=== PATIENT | female | born 1980 | race Caucasian/White ===

== ENCOUNTER 2025-11-10 03:10 | Emergency (ER) | payer MEDICAID, SELFPAY ==
--- NOTE | ~2025-11-10 | CT_ITS ---
CLINICAL HISTORY: flank pain CT abdomen and pelvis without contrast Comparison: None provided Findings: Limited exam due to streak artifacts and motion. Mild bibasilar dependent lung atelectasis. Small calcified right hilar nodes. Small calcified splenic granuloma. Mild splenomegaly. Gallbladder not seen on this limited study and may be surgically absent. Pancreas liver bile ducts and adrenals are unremarkable. Questionable 1 mm nonobstructive right renal stone. No hydronephrosis. No bowel obstruction, pneumoperitoneum, or pneumatosis. Nonspecific/indeterminate enlarged aortocaval node measuring up to 13 mm in short axis (series 3, image 37), may be reactive or neoplastic in nature. Correlate clinically. [id number] stool and gas in the colon. Atherosclerotic calcifications. Query hysterectomy. No appendicitis. Empty urinary bladder. The bones are intact. IMPRESSION: Limited exam due to streak artifacts and motion. No hydronephrosis. Nonspecific/indeterminate enlarged aortocaval node measuring up to 13 mm in short axis (series 3, image 37), may be reactive or neoplastic in nature. Correlate clinically. This document has been electronically signed by: Beverly Laird MD on 11/10/2025 05:36:27
[2025-11-10 03:15] VITALS: BP 239/123; PULSE 75; RESP 20; TEMP 36.6; O2SAT 100; BMI 18.8
[2025-11-10 04:09] LABS: Appearance Urine Clear; Glucose Urine UA >=1000 mg/dL (Negative); PH 6.5 (5.0-9.0); Specific Gravity - Urine 1.025 (1.005-1.025); UMIC TRIGGER UACC YES
[2025-11-10 04:15] LABS: Hematocrit 47.6 % (37.0-47.0); Hemoglobin 15.4 g/dl (12.0-16.0); Imm Gran Abs Auto 0.04 X10*3/uL (0.00-0.03); Imm Gran Pct Auto 0.4 % (0.0-0.4); Lymphocytes Absolute Auto 1.4 X10*3/uL (1.2-4.9); Mean Corpuscular HGB Conc 32.4 g/dl (31.0-35.0); Mean Corpuscular Hemoglobin 26.3 pg (27.0-33.0); Mean Corpuscular Volume 81.2 fL (80.0-98.0); NRBC Abs Auto 0.000 X10*3/uL (0.0-0.012); NRBC Pct Auto 0.0 /100WBC (0.0-0.2); Platelet Count 244 X10*3/uL (160-400); Red Blood Count 5.86 X10*6/uL (4.20-5.50); White Blood Count 10.6 X10*3/uL (4.8-10.8)
[2025-11-10 04:16] VITALS: BP 207/107; PULSE 67; RESP 13
[2025-11-10 04:16] LABS: MANUAL DIFF FLAG NO
--- NOTE | 2025-11-10 04:20 | ED.GENADULT ---
HPI - General Adult General Chief complaint: Back Pain/Injury Stated complaint: back pain Time Seen by Provider: 11/10/25 03:45 Source: patient Limitations: no limitations History of Present Illness ED Provider: Renetta Fernandes PA-C HPI narrative: 45-year-old female with a self-reported history of chronic back pain, IV drug abuse, HTN, presents with mid back pain x3 days. Pain spans from mid to low back, does not radiate into the lower extremities. Unable to describe the nature of her discomfort. Denies paresthesia, weakness of lower extremities, urinary retention or bowel incontinence. Patient states she has been having decreased urine output, dysuria and nausea vomiting. Denies fever or history of kidney stones. Patient also denies mechanism of injury that could have triggered her back pain. Related Data Previous Rx's ?Medication ?Instructions ?Recorded clonidine HCl 0.1 mg tablet 0.1 mg PO BID 30 days #60 tabs 11/12/25 lisinopril 40 mg tablet 40 mg PO DAILY 30 days #30 tabs 11/12/25 Allergies Allergy/AdvReac Type Severity Reaction Status Date / Time morphine (MORPHINE) Allergy Intermediate HIVES Verified 11/11/25 19:15 Penicillins (PENICILLINS) Allergy Intermediate HIVES Verified 11/11/25 19:15 Sulfa (Sulfonamide Allergy Intermediate HIVES Verified 11/11/25 19:15 Antibiotics) (SULFA(SULFONAMIDE ANTIBIOTICS)) Review of Systems Review of Systems: Yes all other systems are reviewed and are negative Constitutional: Constitutional: Denies fatigue and Denies fever(s) Cardiovascular: Cardiovascular: Denies chest pain and Denies dyspnea Respiratory: Respiratory: Denies cough and Denies dyspnea Gastrointestinal: Gastrointestinal: Denies abdominal pain, Denies constipation, Denies diarrhea, Reports nausea and Reports vomiting Genitourinary: Genitourinary: Reports dysuria and Denies flank pain Musculoskeletal: Musculoskeletal: Reports back pain, Denies muscle weakness, Denies numbness, Denies radiating pain into limb, Denies stiffness and Denies tingling Neurologic: Denies numbness and Denies tingling Endocrine: Endocrine: Denies fatigue [facility] Past Medical History Attestation statement: The following information was validated with the patient. Medical History (Updated 11/12/25 @ 02:13 by Danielle Ponce DO) Polysubstance abuse Social History Social History Household Members: Family Housing: House Do you presently have visiting nurse or other home services: No Patient Tobacco Use Status: Current everyday Tobacco user Tobacco use type: Cigarette Cigarettes Per Day: 3 e-Cigarette/Vaping Use: Never Used Physical Exam ED Vital Signs: Vital Signs - 24 hr 11/10/25 03:15 11/10/25 04:16 11/10/25 09:19 Temperature 97.8 F Pulse Rate 75 67 65 Respiratory Rate 20 13 18 Blood Pressure 239/123 H 207/107 H 208/105 H Pulse Oximetry 100 97 Oxygen Delivery Method Room Air Room Air BMI result Body Mass Index 18.8 Const Other: Awake, appears older than stated age Orientation/consciousness: patient oriented x3 Resp Effort & Inspection: normal respiratory effort Cardio Other: Normal peripheral perfusion Back/Spine/Pelvis Other: Bilateral CVA tenderness Skin Other: Warm dry no rash Neuro General: patient oriented x3, gait normal, no focal motor deficits and CN's II-XI intact bilaterally Extrem Other: Strength 5/5 bilateral lower extremity Psych Other: Hostile belligerent Course Reevaluation(s) Reevaluation #1: After the initial round of medication, the patient is still begins to vomit, giving some Benadryl. The patient's behaviors have been very concerning for medication seeking behavior. She states she last used illicit substances 12 months ago, her drug screen is positive for fentanyl cocaine and marijuana. Her mother who is at bedside, is extremely emotional, she states she brought her here for help with detox. I will place a consult with the recovery team. Right now, the patient is more calm, sleeping, she had 1 episode of vomiting. I will treat with opiate to help with her opiate withdrawal, when she wakes again. Time: 05:08 Reevaluation #2: Time: 05:40 Date: 11/10/25 Provider: HILARIA Middleton Patient in physician observation for psychiatric evaluation.? No acute events reported overnight. No current complaints. VS stable.? Patient is in bed search status/pending CARE team evaluation. Will continue to monitor. Reevaluation #3: DR. Strickland's progress note: 11/10/2025: 09:30: Patient in the ED is calm, no SI, no HI, no hallucination no complaints, found to have high blood pressure 208/105, no headache, no blurry vision, no CP, no SOB, no abdominal pain currently patient used to take blood pressure medication which she does not take now because she lost her medical insurance and PCP coverage. Patient in the process of applying for health insurance and finding PCP, patient and her partner are requesting to leave now do not want to wait to monitor blood pressure after taking amlodipine. Time: 09:29 Medications Administered Discontinued Medications Generic Name Dose Route Start Last Admin Trade Name Umu PRN Reason Stop Dose Admin Amlodipine Besylate 5 mg 11/10/25 09:23 11/10/25 09:33 Amlodipine Besylate 5 Mg Tablet PO 11/10/25 09:24 5 mg ONCE ONE Administration Protocol Diphenhydramine HCl 25 mg 11/10/25 04:37 11/10/25 04:51 Diphenhydramine Hcl 50 Mg/Ml Vial IVPUSH 11/10/25 04:38 25 mg ONCE ONE Administration Droperidol 2.5 mg 11/10/25 04:13 11/10/25 04:24 Droperidol 5 Mg/2 Ml Vial IVPUSH 11/10/25 04:14 2.5 mg ONCE ONE Administration Hydromorphone HCl 0.5 mg 11/10/25 05:21 11/10/25 05:26 Hydromorphone Hcl 0.5 Mg/0.5 Ml Syringe IVPUSH 11/10/25 05:22 0.5 mg ONCE ONE Administration Protocol Lactated Ringer's 1,000 mls @ 999 mls/hr 11/10/25 05:00 11/10/25 07:27 Lr IV 11/10/25 06:00 Infused .Q1H1M CYNTHIA Infusion Ketorolac Tromethamine 15 mg 11/10/25 04:13 11/10/25 04:23 Ketorolac Tromethamine 15 Mg/Ml Vial IVPUSH 11/10/25 04:14 15 mg ONCE ONE Administration Midazolam HCl 2 mg 11/10/25 04:13 11/10/25 04:26 Midazolam Hcl 2 Mg/2 Ml Vial IVPUSH 11/10/25 04:14 2 mg ONCE ONE Administration Procedures Ultrasound ED POC Ultrasound: Ultrasound-guided IV for peripheral access: RN unable to obtain 20 gauge 1-3/4 inch IV placed in left upper extremity. Adequate blood return, flushes well and secured with Tegaderm, Performed by Renetta Fernandes PA-C on November 10, 2025 Medical Decision Making Medical Decision Making MDM Narrative: 45-year-old female with a self-reported history of chronic back pain, IV drug abuse, HTN, presents with mid back pain x3 days. Pain spans from mid to low back, does not radiate into the lower extremities. Unable to describe the nature of her discomfort. Denies paresthesia, weakness of lower extremities, urinary retention or bowel incontinence. Patient states she has been having decreased urine output, dysuria and nausea vomiting. Denies fever or history of kidney stones. Patient also denies mechanism of injury that could have triggered her back pain. Problem: Poorly controlled blood pressure, IV drug abuse, chronic pain History: Per patient and her mother I have considered the following differential diagnoses: Medication seeking behavior, opiate withdrawal, alcohol withdrawal, renal colic, pyelonephritis, viral syndrome, cauda equina, lumbar radiculopathy, Plan: The patient is most certainly exhibiting medication seeking behavior. With her constellation of symptoms and nature of the exam, I will rule out pyelo versus renal colic. Obtaining screening labs, urinalysis in his dry CT scan. I am medicating with droperidol Versed and Toradol. The patient is hypertensive and tachy at times, I asked numerous times whether the patient has an alcohol abuse history, the mother, who is a reliable historian, denies. She states that her daughter does have a substance abuse history. She also states she is concerned, and that she brought her here for help with detox. The patient's presentation could also be secondary to opiate withdrawal. Adding on a drug screen and ethanol. We will place consult with the recovery team. Influenza has been circulating ramp within the ED, adding on a viral panel. I have independently reviewed the following tests: Labs: No overall leukocytosis, left shift noted, although the patient has hemoconcentrated, drug screen positive for fentanyl, cocaine and marijuana, urine not infected, passing sugar, trace hematuria, chemistry pending, it needs to be recollected, viral panel negative, No electrolyte abnormality, sugar 169, not , ethanol less than 10.... She may be a new diabetic CT abdomen and pelvis:IMPRESSION: Limited exam due to streak artifacts and motion. No hydronephrosis. Nonspecific/indeterminate enlarged aortocaval node measuring up to 13 mm in short axis (series 3, image 37), may be reactive or neoplastic in nature. Correlate clinically. Differential Diagnosis Differential Diagnoses: The differential diagnosis associated with the presentation includes See [facility] Admission/Observation Consideration of admission/observation: Escalation of care including admission/observation considered Lab Data [facility] Lab Attestation statement: I reviewed the patient's lab results. 11/10/25 04:11 11/10/25 04:58 Labs: Lab Results 11/10/25 11/10/25 11/10/25 Range/Units 04:02 04:03 04:11 WBC 10.6 (4.8-10.8) X10*3/uL RBC 5.86 H (4.20-5.50) X10*6/uL Hgb 15.4 (12.0-16.0) g/dl Hct 47.6 H (37.0-47.0) % MCV 81.2 (80.0-98.0) fL MCH 26.3 L (27.0-33.0) pg MCHC 32.4 (31.0-35.0) g/dl RDW 14.0 (11.0-16.0) % Plt Count 244 (160-400) X10*3/uL MPV 9.2 L (9.4-12.3) fL Immature Gran % (Auto) 0.4 (0.0-0.4) % Neut % (Auto) 80.8 H (45-73) % Lymph % (Auto) 13.3 L (20-40) % [place] % (Auto) 4.6 (2-11) % Eos % (Auto) 0.6 (0-4) % Baso % (Auto) 0.3 (0-2) % Lymph # (Auto) 1.4 (1.2-4.9) X10*3/uL [place] # (Auto) 0.5 (0.1-1.2) X10*3/uL Eos # (Auto) 0.1 (0.0-0.4) X10*3/uL Baso # (Auto) 0.0 (0.0-0.2) X10*3/uL Abs Immat Gran (auto) 0.04 H (0.00-0.03) X10*3/uL Absolute Neuts (auto) 8.5 H (2.0-8.3) x10*3/uL Absolute Nucleated RBC 0.000 (0.0-0.012) X10*3/uL Nucleated RBC % (auto) 0.0 (0.0-0.2) /100WBC Sodium (135-145) mmol/L Potassium (3.3-5.1) mmol/L Chloride (96-108) mmol/L Carbon Dioxide (22-29) mmol/L Anion Gap (12-20) BUN (9-16) mg/dL Creatinine (0.5-1.4) mg/dL Estim Creat Clear Calc Estimated GFR Random Glucose (60-115) mg/dL Calcium (8.4-10.2) mg/dL Magnesium (1.6-2.6) mg/dL Total Bilirubin (0.0-1.0) mg/dL AST (5-31) U/L ALT (0-31) U/L Alkaline Phosphatase (39-117) U/L Total Protein (6.5-8.0) g/dL Albumin (3.5-5.0) g/dL Beta HCG, Quant mIU/mL Urine Color Yellow Urine Appearance Clear Urine pH 6.5 (5.0-9.0) Ur Specific [place] 1.025 (1.005-1.025) Urine Protein Trace (Neg-Trace) mg/dL Urine Glucose (UA) >=1000 H (Negative) mg/dL Urine Ketones Trace (Negative) mg/dL Urine Blood Negative (Negative) Urine Nitrite Negative (Negative) Ur Leukocyte Esterase Negative (Negative) Urine RBC 0-2 (0-2) /HPF Urine WBC 0-5 (0-5) /HPF Ur Squamous Epith Cells 0-2 (0-2) /HPF Urine Bacteria Trace (None Seen) Hyaline Casts 0-2 (0-2) /LPF Urine Opiates Screen Not Detected (Not Detect) Ur Buprenorphine Scrn Not Detected (Not Detect) ng/mL Ur Oxycodone Screen Not Detected (Not Detect) ng/mL Urine Methadone Screen Not Detected (Not Detect) ng/mL Urine Fentanyl Screen POSITIVE H (Not Detect) Ur Barbiturates Screen Not Detected (Not Detect) Ur Phencyclidine Scrn Not Detected (Not Detect) Ur Amphetamines Screen Not Detected (Not Detect) U Benzodiazepines Scrn Not Detected (Not Detect) Urine Cocaine Screen POSITIVE H (Not Detect) U Marijuana (THC) Screen POSITIVE H (Not Detect) Ethyl Alcohol mg/dL Influenza Type A (PCR) NEGATIVE (Negative) Influenza Type B (PCR) NEGATIVE (Negative) RSV RNA Qual (PCR) NEGATIVE (Negative) SARS-CoV-2 RNA (RT-PCR) NEGATIVE (Negative) 11/10/25 Range/Units 04:58 WBC (4.8-10.8) X10*3/uL RBC (4.20-5.50) X10*6/uL Hgb (12.0-16.0) g/dl Hct (37.0-47.0) % MCV (80.0-98.0) fL MCH (27.0-33.0) pg MCHC (31.0-35.0) g/dl RDW (11.0-16.0) % Plt Count (160-400) X10*3/uL MPV (9.4-12.3) fL Immature Gran % (Auto) (0.0-0.4) % Neut % (Auto) (45-73) % Lymph % (Auto) (20-40) % [place] % (Auto) (2-11) % Eos % (Auto) (0-4) % Baso % (Auto) (0-2) % Lymph # (Auto) (1.2-4.9) X10*3/uL [place] # (Auto) (0.1-1.2) X10*3/uL Eos # (Auto) (0.0-0.4) X10*3/uL Baso # (Auto) (0.0-0.2) X10*3/uL Abs Immat Gran (auto) (0.00-0.03) X10*3/uL Absolute Neuts (auto) (2.0-8.3) x10*3/uL Absolute Nucleated RBC (0.0-0.012) X10*3/uL Nucleated RBC % (auto) (0.0-0.2) /100WBC Sodium 139 (135-145) mmol/L Potassium 4.4 (3.3-5.1) mmol/L Chloride 106 (96-108) mmol/L Carbon Dioxide 23 (22-29) mmol/L Anion Gap 14 (12-20) BUN 13 (9-16) mg/dL Creatinine 0.93 (0.5-1.4) mg/dL Estim Creat Clear Calc 66.2 Estimated GFR > 60 Random Glucose 169 H (60-115) mg/dL Calcium 9.5 (8.4-10.2) mg/dL Magnesium 2.1 (1.6-2.6) mg/dL Total Bilirubin 0.3 (0.0-1.0) mg/dL AST 42 H (5-31) U/L ALT 25 (0-31) U/L Alkaline Phosphatase 110 (39-117) U/L Total Protein 9.6 H (6.5-8.0) g/dL Albumin 3.8 (3.5-5.0) g/dL Beta HCG, Quant < 2 mIU/mL Urine Color Urine Appearance Urine pH (5.0-9.0) Ur Specific [place] (1.005-1.025) Urine Protein (Neg-Trace) mg/dL Urine Glucose (UA) (Negative) mg/dL Urine Ketones (Negative) mg/dL Urine Blood (Negative) Urine Nitrite (Negative) Ur Leukocyte Esterase (Negative) Urine RBC (0-2) /HPF Urine WBC (0-5) /HPF Ur Squamous Epith Cells (0-2) /HPF Urine Bacteria (None Seen) Hyaline Casts (0-2) /LPF Urine Opiates Screen (Not Detect) Ur Buprenorphine Scrn (Not Detect) ng/mL Ur Oxycodone Screen (Not Detect) ng/mL Urine Methadone Screen (Not Detect) ng/mL Urine Fentanyl Screen (Not Detect) Ur Barbiturates Screen (Not Detect) Ur Phencyclidine Scrn (Not Detect) Ur Amphetamines Screen (Not Detect) U Benzodiazepines Scrn (Not Detect) Urine Cocaine Screen (Not Detect) U Marijuana (THC) Screen (Not Detect) Ethyl Alcohol < 10 mg/dL Influenza Type A (PCR) (Negative) Influenza Type B (PCR) (Negative) RSV RNA Qual (PCR) (Negative) SARS-CoV-2 RNA (RT-PCR) (Negative) Radiology Impression Discussion of test interpretation with radiology: I have reviewed the radiologist's reading. Discharge Plan Discharge Clinical Impression: Polysubstance abuse, Essential hypertension Patient Disposition: Home, Self-Care Instructions: Hypertension (ED) Prescriptions: No Action lisinopril 40 mg tablet 40 mg PO DAILY 30 Days Qty: 30 0RF clonidine HCl 0.1 mg tablet 0.1 mg PO BID 30 Days Qty: 60 0RF Referrals: Irina Isaacs CNP [Nurse Practitioner, Internal Medicine] Discharge Date/Time: 11/10/25 10:55 Print Language: [place]ian
[2025-11-10 04:22] LABS: Cannabinoid Screen Urine POSITIVE (Not Detect)
[2025-11-10 04:44] LABS: Resp Syncy Virus RNA Qual PCR NEGATIVE (Negative); SARS COV2 PCR INHOUSE NEGATIVE (Negative)
[2025-11-10] MEDS: Lactated Ringers 1,000 ML 999 ML IV (05:05)
[2025-11-10 05:27] LABS: Alanine Aminotransferase 25 U/L (0-31); Albumin Level 3.8 g/dL (3.5-5.0); Alkaline Phosphatase 110 U/L (39-117); Anion Gap 14 (12-20); Aspartate Amino Transferase 42 U/L (5-31); Blood Urea Nitrogen 13 mg/dL (9-16); Calcium 9.5 mg/dL (8.4-10.2); Carbon Dioxide 23 mmol/L (22-29); Chloride 106 mmol/L (96-108); Creatinine Clr Calc Pharmacy 66.2; Estimated Glomerular Filt Rate > 60; Magnesium 2.1 mg/dL (1.6-2.6); Potassium 4.4 mmol/L (3.3-5.1); Sodium 139 mmol/L (135-145); Total Protein 9.6 g/dL (6.5-8.0)
[2025-11-10 09:19] VITALS: BP 208/105; PULSE 65; RESP 18; O2SAT 97
[2025-11-10 10:30] VITALS: BP 205/102; PULSE 61; RESP 16; O2SAT 98
--- NOTE | 2025-11-10 10:40 | PC.NURSE ---
Repeat BP pt remains HTN, Dr Strickland notified and okay to discharge with rx for Amlodipine and will need f/u outpatient with pcp regarding HTN management. Pt denies headache, CP or blurry vision.
== END 2025-11-10 10:55 | disposition home or self-care (01) ==
PROVIDERS: Physician Assistant Medical; Emergency Provider Emergency Medicine
DX: F11.23 Opioid dependence with withdrawal (principal); F14.90 Cocaine use, unspecified, uncomplicated; F12.90 Cannabis use, unspecified, uncomplicated; M54.50 Low back pain, unspecified; R11.2 Nausea with vomiting, unspecified; R33.9 Retention of urine, unspecified; R30.0 Dysuria; R10.23 Pelvic and perineal pain bilateral; I10 Essential (primary) hypertension; F17.210 Nicotine dependence, cigarettes, uncomplicated; Z03.818 Encounter for observation for suspected exposure to other biological agents ruled out; Z51.81 Encounter for therapeutic drug level monitoring
CPT/HCPCS: 36415; 74176; 80053; 80307; 81001; 83735; 84702; 85025; 87637; 96365; 96375; 99284; J1171; J1200; J1790; J1885; J2250; J7120

== ENCOUNTER → 2025-11-10 03:55 | Outpatient (BNV) | payer SELFPAY | PROVIDERS: Emergency Provider Emergency Medicine; Visit Provider Radiology Diagnostic Radiology | DX: R10.A0 Flank pain, unspecified side (principal); M54.50 Low back pain, unspecified; M50.322 Other cervical disc degeneration at C5-C6 level; M54.9 Dorsalgia, unspecified; R56.9 Unspecified convulsions | CPT/HCPCS: 70450; 72141; 72146; 72148; 74176 ==

== ENCOUNTER 2025-11-10 10:50 | Inpatient (IN) | payer SELFPAY ==
[2025-11-10] VITALS (9 sets, daily range): BP systolic 148–196; BP diastolic 86–115; PULSE 74–99; RESP 18–24; TEMP 36.9; O2SAT 96–99; BMI 19.4
--- NOTE | 2025-11-10 | ECG_ITS ---
Test Reason : HYPERTENSION Blood Pressure : */* mmHG Vent. Rate : 62 BPM Atrial Rate : 62 BPM P-R Int : 132 ms QRS Dur : 88 ms QT Int : 448 ms P-R-T Axes : 69 71 59 degrees QTcB Int : 454 ms Normal sinus rhythm Moderate voltage criteria for LVH, may be normal variant ( Sokolow-Ackerman , Brayan product ) Borderline ECG When compared with ECG of 20-Apr-2014 22:38, T wave amplitude has increased in Lateral leads Referred By: Ida Kurtz Electronically Signed By: JORGE KELLY MD
--- NOTE | ~2025-11-10 | MR_ITS ---
CLINICAL HISTORY: hx drug use, back pain, epidural abscess screening, no contrast given- pt climbing off table, best obtainable, unable to follow instructions, motion MR lumbar spine without gadolinium Comparison: CT/SR - CT ABDOMEN PELVIS WO IV CON - 11/10/25 04:41 EST Findings: Examination of the axial planes is significantly limited due to motion artifact. Straightening of the normal lumbar lordosis. No acute fracture or pathologic bone lesion. The vertebral body heights are maintained. The conus medullaris appropriately terminates at the level of L1. Mild edema of the superior endplate of S1, likely degenerative. No epidural abscess. No prevertebral soft tissue edema. No significant spinal canal or foraminal stenoses. No significant degenerative change. Paraspinous musculature intact. The partially seen abdominal/pelvic soft tissues are not well evaluated due to motion artifact. IMPRESSION: No epidural abscess as clinically questioned. No high-grade spinal canal stenosis. This document has been electronically signed by: Tessa Andino MD on 11/10/2025 14:10:54
--- NOTE | ~2025-11-10 | MR_ITS ---
CLINICAL HISTORY: hx drug use, back pain, epidural abscess screenin no contrast given- pt climbing off table, best obtainable, unable to follow instructions, motion MR thoracic spine without gadolinium Comparison: None provided Findings: Normal alignment. No acute fracture or pathologic bone lesion. The vertebral body heights are maintained. Thoracic cord is unremarkable. No spinal cord edema. No epidural abscess. No significant spinal canal or foraminal stenoses. No significant degenerative change. There is increased STIR signal in the interspinous spaces in from T4-T8 and increased signal of the subcutaneous tissue posteriorly. This is limited in evaluation due to the lack of intravenous contrast and fluid sensitive sequences in the axial plane. However, this may be inflammatory/traumatic/incomplete fat suppression. Paraspinous musculature intact. IMPRESSION: No epidural abscess as clinically questioned. Increased STIR signal in the interspinous spaces from T4-T8, likely secondary to incomplete fat suppression. Correlate with point tenderness to rule out inflammatory/traumatic etiology. This document has been electronically signed by: Tessa Andino MD on 11/10/2025 14:25:07
--- NOTE | ~2025-11-10 | CT_ITS ---
CLINICAL HISTORY: seizure --- Additional Notes or Special Instructions: UNABLE TO HOLD STILL, MULTIPLE ATTEMPTS, 1230 CT head without contrast Comparison: None provided Findings: No intra-axial mass, midline shift, hydrocephalus, or acute hemorrhage. No significant atrophy-like change or white matter disease. The visualized paranasal sinuses and mastoid air cells are normal. The orbits are unremarkable. No skull fracture. IMPRESSION: 1. No acute intracranial findings. This document has been electronically signed by: Jeferson Bocanegra MD on 11/10/2025 19:02:54
--- NOTE | ~2025-11-10 | MR_ITS ---
CLINICAL HISTORY: hx drug use, back pain, epidural abscess screenin no contrast given- pt climbing off table, best obtainable, unable to follow instructions, motion MR cervical spine without gadolinium Comparison: None provided Findings: Straightening of the normal cervical lordosis. The vertebral body heights are maintained. No abnormal spinal cord signal. At C5-C6, there is endplate irregularity without associated edema or cortical breakthrough, likely post inflammatory or degenerative. Mild left neural foraminal narrowing at this level. No high-grade spinal canal or neural foraminal narrowing. No acute fractures or pathologic bone lesions. Increased stir signal within the interspinous ligaments is favored to be secondary to incomplete fat suppression. No acute findings on limited view of the partially visualized posterior fossa. No cervical fluid collections or masses. Cervical cord normal. IMPRESSION: No epidural abscess as questioned. Degenerative changes at C5-C6 without high-grade spinal canal or neural foraminal narrowing. Increased stir signal within the interspinous ligaments from C4-C7 is favored to be secondary to incomplete fat suppression. Correlate with point tenderness to rule out traumatic etiology. This document has been electronically signed by: Tessa Andino MD on 11/10/2025 14:21:59
[2025-11-10] MEDS: diazePAM 10 MG/2 ML CARTRIDGE 5 MG IVPUSH (11:03)
--- NOTE | 2025-11-10 11:26 | ED.SEIZURE ---
HPI - Seizure General Chief Complaint: Seizure Stated Complaint: seizure Time Seen by Provider: 11/10/25 10:57 Source: patient and family Mode of arrival: ambulatory Limitations: no limitations History of Present Illness ED Provider: DR. Strickland HPI Narrative: 45-year-old female brought in by her mother for evaluation of witnessed seizure in the car, patient is known to have seizure disorder and hypertension appears to be noncompliant with her medication for hypertension or seizure. Patient presented confused and lethargic, +urinary incontinence, + Tongue laceration and bleeding. Patient was seen earlier in the emergency department for abdominal pain had a negative workup for abdominal pain and patient was supposed to be evaluated by recovery team for detox patient /and her mother did not want to wait for further evaluation. In initial presentation patient was complaining of back pain, no urinary incontinence, no stool incontinence, without neurological findings, no fever, no chills. Has not used drugs for the past 3-4 days at least as per mother which may be the reason of Seizure and withdrawal. Related Data Previous Rx's ?Medication ?Instructions ?Recorded amlodipine 5 mg tablet 5 mg PO DAILY #60 tabs 11/10/25 Allergies Allergy/AdvReac Type Severity Reaction Status Date / Time morphine (MORPHINE) Allergy Intermediate HIVES Verified 11/10/25 10:56 Penicillins (PENICILLINS) Allergy Intermediate HIVES Verified 11/10/25 10:56 Sulfa (Sulfonamide Allergy Intermediate HIVES Verified 11/10/25 10:56 Antibiotics) (SULFA(SULFONAMIDE ANTIBIOTICS)) Review of Systems Review of Systems: All other systems are reviewed and are negative Constitutional: Reports as per HPI and Reports no additional constitutional complaints Eyes: Reports as per HPI and Reports no additional eye complaints Reports system reviewed and no additional complaints, except as documented Cardiovascular: Reports as per HPI and Reports no additional cardiovascular complaints Respiratory: Reports as per HPI and Reports no additional respiratory complaints Gastrointestinal: Reports as per HPI and Reports no additional gastrointestinal complaints Genitourinary: Reports no additional female genitourinary complaints Musculoskeletal: Reports no additional musculoskeletal complaints Skin/Breast: Reports system reviewed and no additional complaints, except as docu Psychiatric: Reports no additional psychiatric complaints Endocrine: Reports no additional endocrine complaints Hematologic/Lymphatic: Reports no additional hematologic/lymphatic complaints Allergic/Immunologic: Reports no additional allergic/immunologic complaints Reports system reviewed and no additional complaints, except as documented and Reports Abnormal speech present [facility] Past Medical History Medical History (Updated 11/11/25 @ 00:00 by Hiren Glover) Polysubstance abuse Social History Social History Patient Tobacco Use Status: Current someday Tobacco user Advance Directives: No Advance Directives Information Provided: No Do you have a plan to hurt others: No Plan Nutrition Risks: No Nutritional Risk Patient : No (HCG negative) Physical Exam Vital Signs: Vital Signs: Last Vital Signs Temp 98.4 F 11/10/25 14:53 Pulse 99 11/10/25 22:47 Resp 20 11/10/25 22:47 BP 164/97 H 11/10/25 23:23 Pulse Ox 97 11/10/25 22:47 O2 Del Method Room Air 11/10/25 22:47 BMI result Body Mass Index 19.4 Vital signs have been reviewed and appear to be correct. Blood pressure elevated. Heart rate normal. Respiratory rate normal. Temperature normal. Oxygen saturation normal. Appearance: lethargic, arousable. No acute distress. Mouth exam: 2 cm laceration through and through on the right side of the tongue with active bleeding. Head: Normal external exam. Normocephalic. Atraumatic. No [place] signs noted. No raccoon eyes noted Eyes: PERRLA. EOMI. Conjunctiva and sclera normal. Eyelids normal. ENT: TM's Normal. Pharynx normal. Uvula midline. Moist mucous membranes. No trismus noted. No drooling noted. No muffled voice noted. Neck: Normal inspection. Neck supple. FROM. No adenopathy. Thyroid Normal. No meningeal signs. No neck mass noted. CVS: Normal heart rate and rhythm. Heart sound normal. No murmurs noted. Pulses normal throughout. Respiratory: No respiratory distress. Painless inspiration. Breath sounds normal. No wheezes/rales/rhonchi noted. Chest nontender. No accessory muscle usage noted or decreased air movement noted. Abdomen: Soft and nontender. Bowel sounds normal in all 4 quadrants. No distention noted. No organomegaly noted. No visible injury noted. Back: No CVA tenderness. Full range of motion noted. Skin: Skin warm and dry. Normal skin color. Normal skin turgor. No rashes/lesions/lacerations noted. Extremities: No lower extremity edema. Extremities exhibit normal range of motion. Extremities nontender. Neuro: Oriented X 3. Cranial nerve exam: II-XII are grossly intact No motor deficit. No sensory deficit. Reflexes normal. Course Reevaluation(s) Reevaluation #1: 45-year-old female IV drug abuser last use of heroin was 4 days ago presented earlier today for evaluation of back pain patient did not want to wait for recovery consultation and was discharged home, was brought back shortly after discharge by her mother for having witnessed seizure which thought to be secondary to withdrawal patient is known to have a seizure history patient is not compliant with her hypertension medication neither seizure medication because insurance issue. 1. Tongue laceration was controlled by sutures please refer to procedure note. 2. Seizure thought to be secondary to withdrawal patient declined Suboxone. 3. Will start on Keppra, Valium PRN. 4. Patient with history of IV drug abuse and back pain MRI screening for subdural abscess is negative. Patient is noncompliant with her medication and currently suffering narcotic withdrawal. Signed out to Dr. Figueredo to check head CT and admit the patient. Time: 15:50 Medications Administered Generic Name Dose Route Start Last Admin Trade Name Freq PRN Reason Stop Dose Admin Hydralazine HCl 5 mg 11/10/25 21:36 11/10/25 22:48 Hydralazine Hcl 20 Mg/Ml Vial IVPUSH 5 mg Q6H PRN Administration SBP > 160 Protocol Senna 17.2 mg 11/10/25 21:00 11/10/25 21:10 Sennosides 8.6 Mg Tablet PO Not Given BEDTIME CYNTHIA Sodium Chloride 3 ml 11/11/25 00:00 11/11/25 00:26 0.9 % Sodium Chloride Flush 3 Ml Syringe IVFLUSH 3 ml QSHIFT CYNTHIA Administration Discontinued Medications Generic Name Dose Route Start Last Admin Trade Name Freq PRN Reason Stop Dose Admin Diazepam 5 mg 11/10/25 10:58 11/10/25 11:03 Diazepam 10 Mg/2 Ml Cartridge IVPUSH 11/10/25 10:59 5 mg STAT STA Administration Diazepam 5 mg 11/10/25 11:01 11/10/25 11:28 Diazepam 10 Mg/2 Ml [place] IM 11/10/25 11:02 Not Given STAT STA Diazepam 10 mg 11/10/25 12:33 11/10/25 12:39 Diazepam 10 Mg/2 Ml [place] IVPUSH 11/10/25 12:34 10 mg STAT STA Administration Haloperidol Lactate 1 mg 11/10/25 19:15 11/10/25 19:22 Haloperidol Lactate 5 Mg/Ml Vial IVPUSH 11/10/25 19:16 1 mg STAT STA Administration Levetiracetam 1,000 mg in 100 mls @ 400 mls/hr 11/10/25 10:57 11/10/25 11:54 Keppra IV 11/10/25 11:11 Infused ONCE ONE Infusion Lactated Ringer's 1,000 mls @ 999 mls/hr 11/10/25 11:15 11/10/25 12:53 Lr IV 11/10/25 12:15 Infused .Q1H1M CYNTHIA Infusion Acetaminophen 1,000 mg in 100 mls @ 400 mls/hr 11/10/25 17:22 11/10/25 17:54 Ofirmev IV 11/10/25 17:36 Infused ONCE ONE Infusion Ketorolac Tromethamine 15 mg 11/10/25 17:22 11/10/25 17:35 Ketorolac Tromethamine 15 Mg/Ml Vial IVPUSH 11/10/25 17:23 15 mg ONCE ONE Administration Lidocaine 1 patch 11/10/25 17:22 11/10/25 17:35 Lidocaine 4 % Patch Adh..Patch TRANSDERMA 11/10/25 17:23 1 patch ONCE ONE Administration Protocol Midazolam HCl 4 mg 11/10/25 19:15 11/10/25 19:22 Midazolam Hcl 2 Mg/2 Ml Vial IVPUSH 11/10/25 19:16 4 mg ONCE ONE Administration Medical Decision Making Differential Diagnosis Differential Diagnoses: The differential diagnosis associated with the presentation includes ( Intracranial bleed, epidural abscess, electrolyte derangement, severe anemia, withdrawal seizure.) Admission/Observation Consideration of admission/observation: Escalation of care including admission/observation considered Lab Data MDM Lab Attestation statement: I reviewed the patient's lab results. 11/10/25 11:27 11/10/25 11:27 Labs: Lab Results 11/10/25 Range/Units 11:27 WBC 10.1 (4.8-10.8) X10*3/uL RBC 5.01 (4.20-5.50) X10*6/uL Hgb 13.2 (12.0-16.0) g/dl Hct 41.3 (37.0-47.0) % MCV 82.4 (80.0-98.0) fL MCH 26.3 L (27.0-33.0) pg MCHC 32.0 (31.0-35.0) g/dl RDW 14.3 (11.0-16.0) % Plt Count 246 (160-400) X10*3/uL MPV 9.5 (9.4-12.3) fL Immature Gran % (Auto) 0.6 H (0.0-0.4) % Neut % (Auto) 81.2 H (45-73) % Lymph % (Auto) 12.2 L (20-40) % [place] % (Auto) 5.8 (2-11) % Eos % (Auto) 0.1 (0-4) % Baso % (Auto) 0.1 (0-2) % Lymph # (Auto) 1.2 (1.2-4.9) X10*3/uL [place] # (Auto) 0.6 (0.1-1.2) X10*3/uL Eos # (Auto) 0.0 (0.0-0.4) X10*3/uL Baso # (Auto) 0.0 (0.0-0.2) X10*3/uL Abs Immat Gran (auto) 0.06 H (0.00-0.03) X10*3/uL Absolute Neuts (auto) 8.2 (2.0-8.3) x10*3/uL Absolute Nucleated RBC 0.000 (0.0-0.012) X10*3/uL Nucleated RBC % (auto) 0.0 (0.0-0.2) /100WBC Sodium 135 (135-145) mmol/L Potassium 3.6 (3.3-5.1) mmol/L Chloride 100 (96-108) mmol/L Carbon Dioxide 19 L (22-29) mmol/L Anion Gap 20 (12-20) BUN 10 (9-16) mg/dL Creatinine 0.89 (0.5-1.4) mg/dL Estim Creat Clear Calc 73.8 Estimated GFR > 60 Random Glucose 174 H (60-115) mg/dL Calcium 8.9 D (8.4-10.2) mg/dL Troponin I High Sens 14.7 (<3.5-17.0) ng/L Independent Interpretation I performed an independent interpretation of an: MRI ( Spine a screening MRI for epidural abscess: Negative.) Radiology Impression Discussion of test interpretation with radiology: I have reviewed the radiologist's reading. Procedures Laceration Laceration 1: Site: other ( Tongue, right side) Description: irregular and contaminated Depth: simple, single layer Skin layer closed with: vicryl Size (cm): 3-0 Number of sutures: 2 Technique: simple, interrupted Discharge Plan Discharge Clinical Impression: Polysubstance abuse, Essential hypertension Drug withdrawal seizure Qualifiers: Complication of substance-induced condition: with delirium Qualified Code(s): F19.931 - Other psychoactive substance use, unspecified with withdrawal delirium Patient Disposition: Admitted As Inpatient Interventions: Admission Worksheet (ED) Last Done: 11/10/25 23:41 Discharge Date/Time: 11/11/25 00:54
[2025-11-10 11:35] LABS: Hematocrit 41.3 % (37.0-47.0); Hemoglobin 13.2 g/dl (12.0-16.0); Imm Gran Abs Auto 0.06 X10*3/uL (0.00-0.03); Imm Gran Pct Auto 0.6 % (0.0-0.4); Lymphocytes Absolute Auto 1.2 X10*3/uL (1.2-4.9); MANUAL DIFF FLAG NO; Mean Corpuscular HGB Conc 32.0 g/dl (31.0-35.0); Mean Corpuscular Hemoglobin 26.3 pg (27.0-33.0); Mean Corpuscular Volume 82.4 fL (80.0-98.0); NRBC Abs Auto 0.000 X10*3/uL (0.0-0.012); NRBC Pct Auto 0.0 /100WBC (0.0-0.2); Platelet Count 246 X10*3/uL (160-400); Red Blood Count 5.01 X10*6/uL (4.20-5.50); White Blood Count 10.1 X10*3/uL (4.8-10.8)
[2025-11-10] MEDS: levETIRAcetam in NaCl (iso-os) 1,000 MG/100 ML PIGGYBACK 400 MG IV (11:36)
[2025-11-10] MEDS: Lactated Ringers 1,000 ML 999 ML IV (11:37)
[2025-11-10 11:51] LABS: Anion Gap 20 (12-20); Blood Urea Nitrogen 10 mg/dL (9-16); Calcium 8.9 mg/dL (8.4-10.2); Carbon Dioxide 19 mmol/L (22-29); Chloride 100 mmol/L (96-108); Creatinine Clr Calc Pharmacy 73.8; Estimated Glomerular Filt Rate > 60; Potassium 3.6 mmol/L (3.3-5.1); Sodium 135 mmol/L (135-145)
--- NOTE | 2025-11-10 11:53 | PC.NURSE ---
mri screening form completed with patients mother, patient post ictal s/p seizure and was medicated with valium
[2025-11-10 12:01] LABS: Troponin-I High Sensitivity 14.7 ng/L (<3.5-17.0)
[2025-11-10] MEDS: diazePAM 10 MG/2 ML CARTRIDGE IVPUSH (12:39)
--- NOTE | 2025-11-10 12:47 | PC.NURSE ---
Patient arrived back to ED after being discharged after witnessed seizure activity by her mother. Patient bleeding from mouth, lac to tongue observed.
[2025-11-10] MEDS: Lidocaine 4 % Patch ADH..PATCH 1 PATCH TRANSDERMA (17:35)
--- NOTE | 2025-11-10 19:25 | PC.NURSE ---
pt agitated, restless, leaving room, provider advise. pt medicated per jan. pt calm and cooperative at time of med administration. pt placed on monitor. pt to be medically admitted.
--- NOTE | 2025-11-10 19:57 | P.HPHOSP_ITS ---
History of Present Illness Date of Service: 11/10/25 Attending physician on admission: Ester Klein Chief Complaint: anayeli Patient is a 45-year-old female currently sedated unable to provide any history is being admitted for breakthrough seizure related to possible drug withdrawal. Patient's toxicology screen positive for fentanyl, cocaine and marijuana. Patient actually was in the ED earlier to be seen by addictions and then left and returned with new onset seizure activity. Information was provided by patient's mother who is not currently in the ED. Patient had a seizure in the car and was seen in a postictal state. Patient did under go a tongue laceration which was repaired in the ED. Patient also experienced confusion, lethargy and urinary incontinence. Patient later began to wander in the ED and was uncooperative with staff and required additional sedation is currently resting comfortably, able to protect her airway. Per nursing triage note on 1st visit patient reported 2 days of back pain with nausea and vomiting. Patient was also having pain with urination. Patient was taking ibuprofen prior to arrival. Incidentally patient's blood pressure has been elevated. Workup in the ED included urinalysis currently negative for UTI, labs indicated no leukocytosis, a CO2 of 19, glucose 174, normal renal function, magnesium 2.1, AST 42, ALT 25, troponin 14.7 and negative for beta hCG. As above toxicology screen positive for fentanyl, cocaine and marijuana. Toxicology screen negative for alcohol. Viral studies negative for flu, RSV and COVID. Abdominal CT indicated no hydronephrosis but was limited due to streak artifact from motion. Patient has a nonspecific indeterminate enlarged aortocaval node measuring up to 13 mm in short axis this may be reactive or neoplastic in nature. MRI of the lumbar spine also completed with no epidural abscess as this was question clinically in the ED. There is no high-grade spinal canal stenosis. Thoracic spine MRI also negative for epidural abscess with incomplete fat suppression T4-T8. Cervical spine MRI also negative for epidural abscess with degenerative changes at C5-C6 without high-grade spinal canal or neural foraminal narrowing. Complete facet suppression noted in C4-C7. Clinically patient has no point tenderness in this area as she is currently sleeping. Head CT also negative for any acute intracranial findings. Patient being admitted for breakthrough seizure related to possible drug withdrawal with essential hypertension suspected. Review of Systems 2 Review of Systems: Yes Unobtainable due to mental condition (Secondary to sedation) PMFSH Medical History (Updated 11/11/25 @ 00:00 by Hiren Glover) Polysubstance abuse Cognitive capacity: Sedated Functional capacity: independent ambulation Patient : No (HCG negative) Social History Household Members: Family Housing: House Do you presently have visiting nurse or other home services: No Patient Tobacco Use Status: Current everyday Tobacco user Tobacco use type: Cigarette Cigarettes Per Day: 3 Smoked in Last 30 Days: Yes e-Cigarette/Vaping Use: Never Used Patient Interested in Nicotine Replacement: No Patient Given Instructions on How to Stop Smoking: No (declines at this time) Have you been hit, kicked, punched, or otherwise hurt by someone within the past year? If so, by whom?: No Do you feel safe in your current relationship?: No Current Relationship Is there a partner from a previous relationship who is making you feel unsafe now?: No Are you made to feel afraid or neglected: No Advance Directives: No Advance Directives Information Provided: No Do you have a plan to hurt others: No Plan Recently lost weight without trying: No How much weight loss: Not applicable Eating poorly because of decreased appetite: No Nutrition screen score: 0 Nutrition Risks: No Nutritional Risk Patient : No : No Poor oral hygiene: No Meds Allergies Allergy/AdvReac Type Severity Reaction Status Date / Time morphine (MORPHINE) Allergy Intermediate HIVES Verified 11/10/25 10:56 Penicillins (PENICILLINS) Allergy Intermediate HIVES Verified 11/10/25 10:56 Sulfa (Sulfonamide Allergy Intermediate HIVES Verified 11/10/25 10:56 Antibiotics) (SULFA(SULFONAMIDE ANTIBIOTICS)) Active Medications: Current Medications Acetaminophen (Acetaminophen 325 Mg Tablet) 650 mg PO Q6H PRN PRN Reason: Pain, Mild 1-3,fever,headache Albuterol/Ipratropium (Albuterol/Iprat 2.5/0.5mg 3 Ml Ampul.Neb) 3 ml INHALE Q4H PRN PRN Reason: Shortness of Breath/Wheezing Calcium Carbonate (Calcium Carbonate 750 Mg Tab.Chew) 750 mg PO Q4H PRN PRN Reason: Heartburn Magnesium Hydroxide (Milk Of Magnesia 30 Ml Oral.Susp) 30 ml PO DAILY PRN PRN Reason: Constipation Melatonin (Melatonin 3 Mg Tablet) 6 mg PO BEDTIME PRN PRN Reason: Insomnia Ondansetron HCl (Ondansetron Hcl 4 Mg/2 Ml Vial) 4 mg IVPUSH Q8H PRN PRN Reason: Nausea and Vomiting Polyethylene Glycol (Polyethylene Glycol 3350 17 Gm Powd.Pack) 17 gm PO DAILY PRN PRN Reason: Constipation Senna (Sennosides 8.6 Mg Tablet) 17.2 mg PO BEDTIME CYNTHIA Sodium Chloride (0.9 % Sodium Chloride Flush 3 Ml Syringe) 3 ml IVFLUSH QSHIFT CYNTHIA Physical Exam 2 Vital Signs and Narrative: Vital Signs: Last Vital Signs Temp 98.4 F 11/10/25 14:53 Pulse 75 11/10/25 19:52 Resp 24 H 11/10/25 19:52 BP 191/108 H 11/10/25 14:53 Pulse Ox 96 11/10/25 19:52 O2 Del Method Room Air 11/10/25 19:52 BMI result Body Mass Index 19.4 Patient currently sedated able to protect her airway Neuro: Unable to assess due to level of sedation EYES: Pupils constricted +1, sclerae nonicteric, conjunctiva pink ENT: Nares patent, oral mucosa moist Cardiac: S1 S2 RRR, no murmur, no JVD, no edema in Lower ext Pulmonary: lungs diminished bilaterally Abdominal: BS active in all 4 quadrants, no guarding, tenderness, rebounding MSK: Unable to assess strength : no CVA tenderness no bladder distension Extremities: no edema in lower extremities, PT and DP pulses palpable +2 Psych: Unable to assess Skin: Multiple healing wounds on legs and upper extremities, unable to examine the backside Results Labs 11/10/25 11:27 11/10/25 11:27 Labs: Laboratory Results - last 24 hr 11/10/25 11:27 MCV 82.4 MCH 26.3 L MCHC 32.0 RDW 14.3 Plt Count 246 MPV 9.5 Immature Gran % (Auto) 0.6 H Neut % (Auto) 81.2 H Lymph % (Auto) 12.2 L [place] % (Auto) 5.8 Eos % (Auto) 0.1 Baso % (Auto) 0.1 Lymph # (Auto) 1.2 [place] # (Auto) 0.6 Eos # (Auto) 0.0 Baso # (Auto) 0.0 Abs Immat Gran (auto) 0.06 H Absolute Neuts (auto) 8.2 Absolute Nucleated RBC 0.000 Nucleated RBC % (auto) 0.0 Anion Gap 20 Estim Creat Clear Calc 73.8 Estimated GFR > 60 Random Glucose 174 H Calcium 8.9 D Troponin I High Sens 14.7 ECG Attestation: I personally reviewed and interpreted this ECG as follows: Prior ECG tracings: not available for review Imaging Radiologist's Impressions: Head CT Negative for any acute findings Cervical, thoracic, lumbar MRI No epidural abscess as clinically questioned. Increased STIR signal in the interspinous spaces from T4-T8, likely secondary to incomplete fat suppression. Correlate with point tenderness to rule out inflammatory/traumatic etiology. Degenerative changes at C5-C6 without high-grade spinal canal or neural foraminal narrowing. Increased stir signal within the interspinous ligaments from C4-C7 is favored to be secondary to incomplete fat suppression. Correlate with point tenderness to rule out traumatic etiology. No epidural abscess as clinically questioned. No high-grade spinal canal stenosis. Abdominal pelvis CT IMPRESSION: Limited exam due to streak artifacts and motion. No hydronephrosis. Nonspecific/indeterminate enlarged aortocaval node measuring up to 13 mm in short axis (series 3, image 37), may be reactive or neoplastic in nature. Correlate clinically. Assessment and Plan (1) Drug withdrawal seizure: Qualifiers: Complication of substance-induced condition: with delirium Qualified Code(s): F19.931 - Other psychoactive substance use, unspecified with withdrawal delirium; R56.9 - Unspecified convulsions Status: Acute (2) Polysubstance abuse: Status: Acute (3) Essential hypertension: Status: Inactive (4) Essential hypertension: Status: Acute Plan Patient is a 45-year-old female currently sedated unable to provide any history is being admitted for breakthrough seizure related to possible drug withdrawal. Incidental findings noted below. Attempted to reach patient's mother for more information regarding HPI and PMH, PSH but no answer x2. Breakthrough seizure related to drug withdrawal most likely Patient received Keppra load in the ED and will start 500 b.i.d. in the a.m. Neurological consult placed Seizure/ aspiration precautions in place NPO currently as patient is sedated, we will need bedside swallow once awake UA negative for UTI Cows ordered Benzodiazepines PRN Per ED record patient had a tongue laceration that was repaired Telemetry Hypertension Patient had been on amlodipine in the past but has been noncompliant Hydralazine PRN Patient currently NPO and sedated Back pain MRI Cervical, thoracic and lumbar negative for epidural abscess Polysubstance use disorder Toxicology screen positive for fentanyl, cocaine and marijuana: suspect IVDA hx No murmur on exam No obvios opened wounds Addictions consulted Cows in place, Valium prn We will check hepatitis B, C and HIV status No epidural abscess found on cervical/thoracic/lumbar MRI Aortocaval Node [address] ABD Per radiologist possibly reactive versus neoplastic Pain in back persists, dilaudid ordered Consider oncology consultation if no improvement Lipase pending CA 19-9 pending DVT prophylaxis: Lovenox Med rec pending Full code status Patient require at least 2 midnight stay for further neurological assessment for seizure activity likely secondary to drug withdrawal and further hemodynamic monitoring for continued withdrawal concerns. Patient will be seen by neuro for expert consultation. 0215 AM pt stated to nursing she wanted to leave AMA, pt agreed to pain medication and valium 20 mins later and is currently sleeping. Quality Stroke Does the patient have a stroke diagnosis?: No Reason for No Anti-thrombotic by Day Two: N/A - Med Ordered VTE Prior VTE?: No VTE Risk Level:: Medical - moderate - high VTE Device Contraindication: N/A - Device Ordered VTE Drug Contraindication: N/A - Med Ordered
--- NOTE | 2025-11-10 20:02 | PC.NURSE ---
pt given water prior to medication administration, pt passed swallow eval.
--- NOTE | 2025-11-10 21:08 | PC.NURSE ---
, pt arousable to touch, pt laying in stretcher with eyes closed, appears to be sleeping, pt advised of PO medication for Senna, stated no to medication and rolled back over onto side. Medication documented as no given, pt declined.
--- NOTE | 2025-11-10 21:37 | PC.NURSE ---
assumed care of patient at this time, NAD noted patient responsive to touch. seizure precautions in place, bed locked in lowest postion.
[2025-11-11] VITALS (7 sets, daily range): BP systolic 116–180; BP diastolic 90–112; PULSE 76–107; RESP 16–20; TEMP 36.4–36.7; O2SAT 97–98; BMI 18.3; BMI 17.1; BMI 17.2
[2025-11-11] MEDS: 0.9 % Sodium Chloride Flush 3 ML SYRINGE IVFLUSH (00:26)
[2025-11-11] MEDS: diazePAM 10 MG/2 ML CARTRIDGE IVPUSH ×2 (04:38→11:04)
[2025-11-11 06:32] LABS: MANUAL DIFF FLAG NO
[2025-11-11 06:38] LABS: Hematocrit 40.6 % (37.0-47.0); Hemoglobin 13.2 g/dl (12.0-16.0); Imm Gran Abs Auto 0.08 X10*3/uL (0.00-0.03); Imm Gran Pct Auto 0.5 % (0.0-0.4); Lymphocytes Absolute Auto 2.6 X10*3/uL (1.2-4.9); Mean Corpuscular HGB Conc 32.5 g/dl (31.0-35.0); Mean Corpuscular Hemoglobin 26.2 pg (27.0-33.0); Mean Corpuscular Volume 80.7 fL (80.0-98.0); NRBC Abs Auto 0.000 X10*3/uL (0.0-0.012); NRBC Pct Auto 0.0 /100WBC (0.0-0.2); Platelet Count 322 X10*3/uL (160-400); Red Blood Count 5.03 X10*6/uL (4.20-5.50); White Blood Count 16.5 X10*3/uL (4.8-10.8)
[2025-11-11 06:57] LABS: Alanine Aminotransferase 23 U/L (0-31); Albumin Level 3.7 g/dL (3.5-5.0); Alkaline Phosphatase 110 U/L (39-117); Anion Gap 14 (12-20); Aspartate Amino Transferase 35 U/L (5-31); Blood Urea Nitrogen 13 mg/dL (9-16); Calcium 9.2 mg/dL (8.4-10.2); Carbon Dioxide 22 mmol/L (22-29); Chloride 101 mmol/L (96-108); Creatinine Clr Calc Pharmacy 95.3; Estimated Glomerular Filt Rate > 60; Lipase 38 U/L (8-78); Potassium 3.5 mmol/L (3.3-5.1); Sodium 133 mmol/L (135-145); Total Protein 8.6 g/dL (6.5-8.0)
[2025-11-11 07:15] LABS: HBS Num1 0.70 mIU/mL (0-7.99); HBc Num1 14.15 S/CO (0.00-0.79); HIV Num 1 0.08 S/CO (0.00-0.99); Hepatitis A Antibody IgM 0.58 Index (0-0.79); ~HepC Num1 12.22 S/CO (0.00-0.79); ~Hepatitis A Antibody IgM Nonreactive (Nonreactive); ~Hepatitis B Surface Antibody NONREACTIVE (Nonreactive); ~Hepatitis C Antibody Reactive (Nonreactive)
--- NOTE | 2025-11-11 07:46 | P.PNIM_ITS ---
Subjective Subjective Date of Service: 11/11/25 Physical Exam 2 Vital Signs: Vital Signs: Last Vital Signs Temp 98.1 F 11/11/25 03:41 Pulse 107 H 11/11/25 05:10 Resp 18 11/11/25 03:41 BP 171/112 H 11/11/25 05:10 Pulse Ox 97 11/11/25 03:41 O2 Del Method Room Air 11/11/25 03:41 BMI result Body Mass Index 17.2 Objective Data Active Medications Acetaminophen (Acetaminophen 325 Mg Tablet) 650 mg PO Q6H PRN PRN Reason: Pain, Mild 1-3,fever,headache Albuterol/Ipratropium (Albuterol/Iprat 2.5/0.5mg 3 Ml Ampul.Neb) 3 ml INHALE Q4H PRN PRN Reason: Shortness of Breath/Wheezing Calcium Carbonate (Calcium Carbonate 750 Mg Tab.Chew) 750 mg PO Q4H PRN PRN Reason: Heartburn Diazepam (Diazepam 10 Mg/2 Ml Cartridge) 10 mg IVPUSH Q6H PRN PRN Reason: Anxiety Last Admin: 11/11/25 04:38 Dose: 10 mg Documented By: CLAUDIO Enoxaparin Sodium (Enoxaparin Sodium 40 Mg/0.4 Ml Syringe) 40 mg SUBCUT Q24H CYNTHIA Hydralazine HCl (Hydralazine Hcl 20 Mg/Ml Vial) 10 mg IVPUSH Q6H PRN; Protocol PRN Reason: SBP > 160 Last Admin: 11/11/25 04:13 Dose: 10 mg Documented By: CLAUDIO Hydromorphone HCl (Hydromorphone Hcl 1 Mg/Ml Syringe) 1 mg IVPUSH Q4H PRN; Protocol PRN Reason: Pain, Severe (Pain Scale 7-10) Last Admin: 11/11/25 02:27 Dose: 1 mg Documented By: CLAUDIO Hydromorphone HCl (Hydromorphone Hcl 1 Mg/Ml Syringe) 0.5 mg IVPUSH Q4H PRN; Protocol PRN Reason: Pain, Moderate(Pain Scale 4-6) Levetiracetam (Keppra) 500 mg in 100 mls @ 400 mls/hr IV Q12H CYNTHIA Magnesium Hydroxide (Milk Of Magnesia 30 Ml Oral.Susp) 30 ml PO DAILY PRN PRN Reason: Constipation Melatonin (Melatonin 3 Mg Tablet) 6 mg PO BEDTIME PRN PRN Reason: Insomnia Ondansetron HCl (Ondansetron Hcl 4 Mg/2 Ml Vial) 4 mg IVPUSH Q8H PRN PRN Reason: Nausea and Vomiting Polyethylene Glycol (Polyethylene Glycol 3350 17 Gm Powd.Pack) 17 gm PO DAILY PRN PRN Reason: Constipation Senna (Sennosides 8.6 Mg Tablet) 17.2 mg PO BEDTIME [facility] Last Admin: 11/10/25 21:10 Dose: Not Given Documented By: GREG Non-Admin Reason: Patient Refused Sodium Chloride (0.9 % Sodium Chloride Flush 3 Ml Syringe) 3 ml IVFLUSH QSHIFT [facility] Last Admin: 11/11/25 00:26 Dose: 3 ml Documented By: ARLETTE Labs 11/11/25 06:17 11/11/25 06:17 Labs: Laboratory Results - last 24 hr 11/10/25 11/11/25 11:27 06:17 MCV 82.4 80.7 MCH 26.3 L 26.2 L MCHC 32.0 32.5 RDW 14.3 14.3 Plt Count 246 322 D MPV 9.5 9.8 Immature Gran % (Auto) 0.6 H 0.5 H Neut % (Auto) 81.2 H 77.2 H Lymph % (Auto) 12.2 L 15.4 L [place] % (Auto) 5.8 6.2 Eos % (Auto) 0.1 0.5 Baso % (Auto) 0.1 0.2 Lymph # (Auto) 1.2 2.6 [place] # (Auto) 0.6 1.0 Eos # (Auto) 0.0 0.1 Baso # (Auto) 0.0 0.0 Abs Immat Gran (auto) 0.06 H 0.08 H Absolute Neuts (auto) 8.2 12.8 H Absolute Nucleated RBC 0.000 0.000 Nucleated RBC % (auto) 0.0 0.0 Anion Gap 20 14 Estim Creat Clear Calc 73.8 95.3 Estimated GFR > 60 > 60 Random Glucose 174 H 152 H Calcium 8.9 D 9.2 Total Bilirubin 0.6 AST 35 H ALT 23 Alkaline Phosphatase 110 Troponin I High Sens 14.7 Total Protein 8.6 H Albumin 3.7 Lipase 38 Hepatitis A IgM Ab Nonreactive Hep Bs Antigen Not Reportable Hep Bs Antibody NONREACTIVE Hepatitis C Ab (EIA) Reactive H HIV 1&2 Ab/P24 Ag 4thGn Nonreactive Assessment and Plan Plan 45-year-old woman with polysubstance use disorder and poorly controlled hypertension, admitted for breakthrough generalized seizure likely secondary to acute substance withdrawal, complicated by post-ictal agitation requiring sedation, tongue laceration, and severe hypertension; extensive imaging negative for intracranial pathology or spinal epidural abscess, currently admitted for neurologic monitoring and withdrawal management. Breakthrough Seizure ? suspected substance withdrawal?related Presented with witnessed generalized seizure with post-ictal confusion, urinary incontinence, and tongue laceration. Head CT negative for acute intracranial process. Electrolytes largely unremarkable. Toxicology positive for fentanyl, cocaine, and THC. No evidence of structural DOCUMENT REVIEWER pathology or infection.? Plan: * Continue?levetiracetam 500 mg BID?(loaded in ED). * Neurology consult for seizure evaluation and AED guidance. * Seizure and aspiration precautions. * Telemetry monitoring. * Avoid precipitants; treat underlying withdrawal. * NPO while sedated; bedside swallow evaluation once alert. * PRN benzodiazepines for breakthrough seizure activity or severe withdrawal symptoms. Polysubstance Use Disorder with Acute Withdrawal Urine toxicology positive for fentanyl, cocaine, and marijuana; clinical course notable for agitation, confusion, hypertension, and seizure consistent with withdrawal. Declined Suboxone in ED. Plan: * CIWA/COWS monitoring per protocol. * Benzodiazepines (e.g., diazepam) PRN for withdrawal symptoms. * Addiction Medicine consult for counseling and treatment options. * Screen for infectious complications of IV drug use:?HIV, hepatitis B, hepatitis C. * Supportive care and harm?reduction counseling once awake. Hypertensive Urgency Marked hypertension on presentation (SBP >230 mmHg) without evidence of acute end organ damage. History of medication nonadherence.? Plan: * PRN IV hydralazine for severe BP elevations. * Resume oral antihypertensives once awake and tolerating PO. * Avoid rapid overcorrection. * Monitor BP closely during withdrawal period. Back Pain Reported mid?to?low back pain prompting evaluation for spinal infection. MRI cervical, thoracic, and lumbar spine negative for epidural abscess or high grade stenosis; STIR changes favored artifact.? Plan: * No further inpatient spine imaging indicated at this time. * Non?opioid analgesia as tolerated. * Reassess pain once withdrawal symptoms improve. Tongue Laceration (s/p repair) Sustained during seizure; repaired in ED.? Plan: * Monitor for bleeding, swelling, or signs of infection. * Maintain oral hygiene when awake. * Soft diet once cleared for PO. Incidental Aortocaval Lymph Node (13 mm) Identified on CT abdomen/pelvis; nonspecific, possibly reactive versus neoplastic.? Plan: * No acute inpatient intervention. * Reassess clinically once withdrawal resolves. * Consider outpatient follow?up imaging or hematology/oncology referral if persistent or symptomatic. --- [employer] * VTE PROPHYLAXIS: Lovenox * CODE STATUS: FULL CODE * DIET: NPO (pending mental status/swallow evaluation) * TELEMETRY: YES * LINES / TUBES: Peripheral IV * FALL / SEIZURE PRECAUTIONS: YES Total time managing care of this patient today: 45 minutes. Quality Stroke Does the patient have a stroke diagnosis?: No Reason for No Anti-thrombotic by Day Two: N/A - Med Ordered VTE Prior VTE?: No VTE Risk Level:: Medical - moderate - high VTE Device Contraindication: N/A - Device Ordered VTE Drug Contraindication: N/A - Med Ordered
--- NOTE | 2025-11-11 08:02 | PHA.MEDREC ---
Addendum entered by Devi Marie RPh 11/11/25 08:10: reviewed Original Note: Pharmacy Consult ? Medication Reconciliation Pharmacy has completed the medication reconciliation. Spoke with pt and she confirmed she is not taking anything at this time.
[2025-11-11 08:15] LABS: HBc Num2 14.24 S/CO; HBc Num3 13.92 S/CO; HBsAGNum2 Reactive
[2025-11-11 08:16] LABS: HBsAGNum3 Reactive; Hepatitis B Surface Antigen Retest CNFM (Negative)
--- NOTE | 2025-11-11 08:36 | PC.ADMIT ---
Pt arrived to floor at approx 0110 from ED via stretcher. Pt A+Ox3, disoriented to situation. Pt moving all extremities with ease. Shortly after arrival to the floor, pt endorsed to this RN that she wants to go home . This RN advised this pt that it is not advised she leave now. Jerardo, PATENT LAW SPECIALIST notified of this, see new orders for IV dilaudid and vallium PRN. PRN meds given per MAR with good effect. Pt slept well most of the night. Blood pressure elevated, PATENT LAW SPECIALIST notified of this. This RN assisted pt to call her mother via hospital phone in room. Pts mother called back and spoke to this RN, update given to pts mother. Plan of care ongoing.
--- NOTE | 2025-11-11 11:01 | PM.NEUROCN ---
History of Present Illness Data of Consult Service Date: 11/11/25 Primary Care Provider: None Physician HPI Reason for consult: Seizure disorder 45 years old woman I was asked to see for seizure disorder. She was unable to provide any history as she was not responsive. Her mother was in the room who provided history stating that her daughter did not have seizure disorder in childhood. Years ago, she started using drugs including pain medicines and then heroin and cocaine. She had moved out to [facility] and came here for a visit. Mother said that she was going to stay with her now. Yesterday there were in the car, when her daughter started having a seizure. Her whole body got twisted and she was unresponsive. Mother turned around and brought her to emergency room. Whole event lasted for a minute or 2. Mother also stated that previously she has been prescribed Keppra but it was not clear if she was taking. Her tox screen was positive for multiple drugs. Review of Systems Review of Systems: Could not be done. [facility] Past Medical History Medical History (Updated 11/11/25 @ 11:04 by Alok Cooper MD) Polysubstance abuse Social History Social History Household Members: Family Housing: House Do you presently have visiting nurse or other home services: No Patient Tobacco Use Status: Current everyday Tobacco user Tobacco use type: Cigarette Cigarettes Per Day: 3 Smoked in Last 30 Days: Yes e-Cigarette/Vaping Use: Never Used Patient Interested in Nicotine Replacement: No Patient Given Instructions on How to Stop Smoking: No (declines at this time) Have you been hit, kicked, punched, or otherwise hurt by someone within the past year? If so, by whom?: No Do you feel safe in your current relationship?: No Current Relationship Is there a partner from a previous relationship who is making you feel unsafe now?: No Are you made to feel afraid or neglected: No Advance Directives: No Advance Directives Information Provided: No Do you have a plan to hurt others: No Plan Recently lost weight without trying: No How much weight loss: Not applicable Eating poorly because of decreased appetite: No Nutrition screen score: 0 Nutrition Risks: No Nutritional Risk Patient : No : No Poor oral hygiene: No Meds Allergies Allergy/AdvReac Type Severity Reaction Status Date / Time morphine (MORPHINE) Allergy Intermediate HIVES Verified 11/10/25 10:56 Penicillins (PENICILLINS) Allergy Intermediate HIVES Verified 11/10/25 10:56 Sulfa (Sulfonamide Allergy Intermediate HIVES Verified 11/10/25 10:56 Antibiotics) (SULFA(SULFONAMIDE ANTIBIOTICS)) Active Medications: Current Medications Acetaminophen (Acetaminophen 325 Mg Tablet) 650 mg PO Q6H PRN PRN Reason: Pain, Mild 1-3,fever,headache Albuterol/Ipratropium (Albuterol/Iprat 2.5/0.5mg 3 Ml Ampul.Neb) 3 ml INHALE Q4H PRN PRN Reason: Shortness of Breath/Wheezing Calcium Carbonate (Calcium Carbonate 750 Mg Tab.Chew) 750 mg PO Q4H PRN PRN Reason: Heartburn Diazepam (Diazepam 10 Mg/2 Ml Cartridge) 10 mg IVPUSH Q6H PRN PRN Reason: Anxiety Last Admin: 11/11/25 04:38 Dose: 10 mg Enoxaparin Sodium (Enoxaparin Sodium 40 Mg/0.4 Ml Syringe) 40 mg SUBCUT Q24H CYNTHIA Last Admin: 11/11/25 07:51 Dose: 40 mg Hydralazine HCl (Hydralazine Hcl 20 Mg/Ml Vial) 10 mg IVPUSH Q6H PRN; Protocol PRN Reason: SBP > 160 Last Admin: 11/11/25 04:13 Dose: 10 mg Hydromorphone HCl (Hydromorphone Hcl 1 Mg/Ml Syringe) 1 mg IVPUSH Q4H PRN; Protocol PRN Reason: Pain, Severe (Pain Scale 7-10) Last Admin: 11/11/25 07:47 Dose: 1 mg Hydromorphone HCl (Hydromorphone Hcl 1 Mg/Ml Syringe) 0.5 mg IVPUSH Q4H PRN; Protocol PRN Reason: Pain, Moderate(Pain Scale 4-6) Levetiracetam (Keppra) 500 mg in 100 mls @ 400 mls/hr IV Q12H CYNTHIA Magnesium Hydroxide (Milk Of Magnesia 30 Ml Oral.Susp) 30 ml PO DAILY PRN PRN Reason: Constipation Melatonin (Melatonin 3 Mg Tablet) 6 mg PO BEDTIME PRN PRN Reason: Insomnia Ondansetron HCl (Ondansetron Hcl 4 Mg/2 Ml Vial) 4 mg IVPUSH Q8H PRN PRN Reason: Nausea and Vomiting Polyethylene Glycol (Polyethylene Glycol 3350 17 Gm Powd.Pack) 17 gm PO DAILY PRN PRN Reason: Constipation Senna (Sennosides 8.6 Mg Tablet) 17.2 mg PO BEDTIME [facility] Last Admin: 11/10/25 21:10 Dose: Not Given Sodium Chloride (0.9 % Sodium Chloride Flush 3 Ml Syringe) 3 ml IVFLUSH QSHIFT [facility] Last Admin: 11/11/25 07:55 Dose: Not Given Home Medications ?Medication ?Instructions ?Recorded ?Confirmed ?Last Taken ?Type No Known Home Meds 11/11/25 11/11/25 Unknown History Physical Exam Vital Signs: Vital Signs: Last Vital Signs Temp 97.5 F 11/11/25 08:00 Pulse 94 11/11/25 08:00 Resp 16 11/11/25 08:00 BP 116/90 H 11/11/25 08:00 Pulse Ox 98 11/11/25 08:00 O2 Del Method Room Air 11/11/25 08:00 BMI result Body Mass Index 17.2 Neuro: Other: Mental Status: Very drowsy and not responsive to verbal commands. Withdraws with pain. Cranial Nerves: Pupils were round reactive and mid line. No gaze deviation. Face seems symmetrical. Motor: Limited exam. Both legs and arms are flexed and she has resisting to extend them. Reflexes are not elicitable. Extrapyramidal: Decreased facial expression. Speech: Did not speak. Results Labs 11/11/25 06:17 11/11/25 06:17 Labs: Short CBC 11/10/25 11/11/25 Range/Units 11:27 06:17 WBC 10.1 16.5 H (4.8-10.8) X10*3/uL Hgb 13.2 13.2 (12.0-16.0) g/dl Hct 41.3 40.6 (37.0-47.0) % Plt Count 246 322 D (160-400) X10*3/uL BMP 11/10/25 11/11/25 11:27 06:17 Sodium 135 133 L Potassium 3.6 3.5 Chloride 100 101 Carbon Dioxide 19 L 22 BUN 10 13 Creatinine 0.89 0.61 Calcium 8.9 D 9.2 Liver Function 11/11/25 Range/Units 06:17 Total Bilirubin 0.6 (0.0-1.0) mg/dL AST 35 H (5-31) U/L ALT 23 (0-31) U/L Alkaline Phosphatase 110 (39-117) U/L Albumin 3.7 (3.5-5.0) g/dL [place] [id number] CT Scan Report Signed Patient: Radha Maya MR#: [id number] : 1980 Report Number: [id number]: Total DLP = 1148.00 mGy-cm Reason for Exam: seizure CLINICAL HISTORY: seizure --- Additional Notes or Special Instructions: UNABLE TO HOLD STILL, MULTIPLE ATTEMPTS, 1230 CT head without contrast Comparison: None provided Findings: No intra-axial mass, midline shift, hydrocephalus, or acute hemorrhage. No significant atrophy-like change or white matter disease. The visualized paranasal sinuses and mastoid air cells are normal. The orbits are unremarkable. No skull fracture. IMPRESSION: 1. No acute intracranial findings. MR thoracic spine without gadolinium Comparison: None provided Findings: Normal alignment. No acute fracture or pathologic bone lesion. The vertebral body heights are maintained. Thoracic cord is unremarkable. No spinal cord edema. No epidural abscess. No significant spinal canal or foraminal stenoses. No significant degenerative change. There is increased STIR signal in the interspinous spaces in from T4-T8 and increased signal of the subcutaneous tissue posteriorly. This is limited in evaluation due to the lack of intravenous contrast and fluid sensitive sequences in the axial plane. However, this may be inflammatory/traumatic/incomplete fat suppression. Paraspinous musculature intact. IMPRESSION: No epidural abscess as clinically questioned. Increased STIR signal in the interspinous spaces from T4-T8, likely secondary to incomplete fat suppression. Correlate with point tenderness to rule out inflammatory/traumatic etiology. [place] [id number] Magnetic Resonance Report Signed Patient: Radha Maya MR#: [id number] : 1980 Acct:[id number] Age/Sex: 45 / F ADM Date: 11/10/25 Loc: HO.ED Attending Dr: Ordering Physician: Gurwinder Strickland MD Date of Service: 11/10/25 Procedure(s): MR cervical spine wo con Accession Number(s): [id number] cc: Gurwinder Strickland MD; Physician,None ~ Reason for Exam: hx drug use, back pain, epidural abscess screenin CLINICAL HISTORY: hx drug use, back pain, epidural abscess screenin no contrast given- pt climbing off table, best obtainable, unable to follow instructions, motion MR cervical spine without gadolinium Comparison: None provided Findings: Straightening of the normal cervical lordosis. The vertebral body heights are maintained. No abnormal spinal cord signal. At C5-C6, there is endplate irregularity without associated edema or cortical breakthrough, likely post inflammatory or degenerative. Mild left neural foraminal narrowing at this level. No high-grade spinal canal or neural foraminal narrowing. No acute fractures or pathologic bone lesions. Increased stir signal within the interspinous ligaments is favored to be secondary to incomplete fat suppression. No acute findings on limited view of the partially visualized posterior fossa. No cervical fluid collections or masses. Cervical cord normal. IMPRESSION: No epidural abscess as questioned. MR lumbar spine without gadolinium Comparison: CT/SR - CT ABDOMEN PELVIS WO IV CON - 11/10/25 04:41 EST Findings: Examination of the axial planes is significantly limited due to motion artifact. Straightening of the normal lumbar lordosis. No acute fracture or pathologic bone lesion. The vertebral body heights are maintained. The conus medullaris appropriately terminates at the level of L1. Mild edema of the superior endplate of S1, likely degenerative. No epidural abscess. No prevertebral soft tissue edema. No significant spinal canal or foraminal stenoses. No significant degenerative change. Paraspinous musculature intact. The partially seen abdominal/pelvic soft tissues are not well evaluated due to motion artifact. IMPRESSION: No epidural abscess as clinically questioned. No high-grade spinal canal stenosis. Assessment and Plan (1) Seizure disorder: Status: Acute 45 years old woman with probably long history of polydrug abuse including heroin and cocaine. She also carried diagnosis of seizure disorder. Previous workup was not available. Her risk of seizure disorder was quite high. Difficulty in this type of patient is management of addiction and compliance regarding antiepileptics. She would require thorough evaluation including involvement of social service technician for rehabilitation. As far as seizure disorder is concerned, my recommendation is to obtain an EEG to rule out nonepileptic status at this time. Otherwise, D valproic acid might be a better choice to help her with behavioral symptoms. 500 mg twice a day is recommended. I also recommend testing for HIV disease, syphilis, Lyme, and serum test for lupus. Vitamin-D, B12 and folate levels were also recommended. In addition, I would add thiamine 100 mg a day, folic acid 1 mg daily, and B complex vitamin to her regimen. (2) Chronic pain syndrome: Status: Acute Unclear etiology of chronic pain syndrome as her spine MRI did not reveal any significant pathology. In addition to the labs I suggested for seizure disorder, I recommend rheumatoid factor, sed rate, CK, aldolase, and serum immunofixation. As far as management of chronic pain syndrome is concerned, it is closely tied to treatment of addiction. Gabapentin 300 mg 2-3 times a day can be considered, which may also help her with mood symptoms. Procedures Date of Service Date of Service: 11/11/25
--- NOTE | 2025-11-11 11:03 | HO.ADDICT_ITS ---
History of Present Illness Date of Service: 11/11/2025 Chief Complaint: seizure Reason for Consult: JORGE A HPI Narrative: Patient is a 45 year old female medically admitted after witnessed seizure. Consult requested secondary to current substance use --cocaine and opioids. Patient seen in room 477. She is laying in bed eyes closed, but awake, and answering questions (for a brief period). She states several times that she wants to go home. T/w inquired if patient would be open to medications to address withdrawal sx, and methadone or buprenorphine offered. She states she can not have methadone because it almost gave me a heart attack . She states she received up to 60mg methadone in [place] and it had to be stopped because of what it was doing to my heart . Unclear what she is referring to? prolonged QTc. t/w offered to introduce smaller dose and monitor closely. she declined. Declined buprenorphine as well. Beyond this would not engage in discussion. She appears thin , weak, restless. Medical Evaluation Reviewed: Yes Review of Systems Review of Systems Yes Other (deferred -pt declined ) Diagnostics Vital Signs (24Hr): Vital Signs - 24 hr 11/10/25 11:06 11/10/25 11:37 11/10/25 14:53 Temperature 98.4 F Pulse Rate 76 80 77 Respiratory Rate 18 18 18 Blood Pressure 148/86 H 182/99 H 191/108 H Pulse Oximetry 96 99 96 Oxygen Delivery Method Room Air Room Air Room Air 11/10/25 19:52 11/10/25 21:41 11/10/25 22:47 Temperature Pulse Rate 75 74 99 Respiratory Rate 24 H 24 H 20 Blood Pressure 187/115 H 196/112 H Pulse Oximetry 96 99 97 Oxygen Delivery Method Room Air Room Air Room Air 11/10/25 22:48 11/10/25 23:23 11/11/25 02:27 Temperature Pulse Rate Respiratory Rate 20 Blood Pressure 196/112 H 164/97 H Pulse Oximetry Oxygen Delivery Method 11/11/25 02:57 11/11/25 03:41 11/11/25 04:13 Temperature 98.1 F Pulse Rate 76 Respiratory Rate 18 18 Blood Pressure 180/90 H Pulse Oximetry 97 Oxygen Delivery Method Room Air 11/11/25 05:10 11/11/25 05:13 11/11/25 08:00 Temperature 97.5 F Pulse Rate 107 H 94 Respiratory Rate 16 Blood Pressure 171/112 H 170/100 H 116/90 H Pulse Oximetry 98 Oxygen Delivery Method Room Air BMI result Body Mass Index 17.2 Labs 11/11/25 06:17 11/11/25 06:17 Labs: Laboratory Results - last 48 hr 11/10/25 11/11/25 11:27 06:17 WBC 10.1 16.5 H RBC 5.01 5.03 Hgb 13.2 13.2 Hct 41.3 40.6 MCV 82.4 80.7 MCH 26.3 L 26.2 L MCHC 32.0 32.5 RDW 14.3 14.3 Plt Count 246 322 D MPV 9.5 9.8 Immature Gran % (Auto) 0.6 H 0.5 H Neut % (Auto) 81.2 H 77.2 H Lymph % (Auto) 12.2 L 15.4 L [place] % (Auto) 5.8 6.2 Eos % (Auto) 0.1 0.5 Baso % (Auto) 0.1 0.2 Lymph # (Auto) 1.2 2.6 [place] # (Auto) 0.6 1.0 Eos # (Auto) 0.0 0.1 Baso # (Auto) 0.0 0.0 Abs Immat Gran (auto) 0.06 H 0.08 H Absolute Neuts (auto) 8.2 12.8 H Absolute Nucleated RBC 0.000 0.000 Nucleated RBC % (auto) 0.0 0.0 Sodium 135 133 L Potassium 3.6 3.5 Chloride 100 101 Carbon Dioxide 19 L 22 Anion Gap 20 14 BUN 10 13 Creatinine 0.89 0.61 Estim Creat Clear Calc 73.8 95.3 Estimated GFR > 60 > 60 Random Glucose 174 H 152 H Calcium 8.9 D 9.2 Total Bilirubin 0.6 AST 35 H ALT 23 Alkaline Phosphatase 110 Troponin I High Sens 14.7 Total Protein 8.6 H Albumin 3.7 Lipase 38 Hepatitis A IgM Ab Nonreactive Hep Bs Antigen Not Reportable Hep Bs Antibody NONREACTIVE Hep B Core Total Ab Reactive Hepatitis C Ab (EIA) Reactive H HIV 1&2 Ab/P24 Ag 4thGn Nonreactive Mental Status Exam Mental Status Exam Patient Appearance: Unkempt Level of Consciousness: Awake Patient Behavior: Restless and Avoidant Affect Description: Blunted Speech Pattern: Clear Judgement: Poor Medications Medications Current Medications Acetaminophen (Acetaminophen 325 Mg Tablet) 650 mg PO Q6H PRN PRN Reason: Pain, Mild 1-3,fever,headache Albuterol/Ipratropium (Albuterol/Iprat 2.5/0.5mg 3 Ml Ampul.Neb) 3 ml INHALE Q4H PRN PRN Reason: Shortness of Breath/Wheezing Calcium Carbonate (Calcium Carbonate 750 Mg Tab.Chew) 750 mg PO Q4H PRN PRN Reason: Heartburn Diazepam (Diazepam 10 Mg/2 Ml Cartridge) 10 mg IVPUSH Q6H PRN PRN Reason: Anxiety Last Admin: 11/11/25 04:38 Dose: 10 mg Enoxaparin Sodium (Enoxaparin Sodium 40 Mg/0.4 Ml Syringe) 40 mg SUBCUT Q24H CYNTHIA Last Admin: 11/11/25 07:51 Dose: 40 mg Hydralazine HCl (Hydralazine Hcl 20 Mg/Ml Vial) 10 mg IVPUSH Q6H PRN; Protocol PRN Reason: SBP > 160 Last Admin: 11/11/25 04:13 Dose: 10 mg Hydromorphone HCl (Hydromorphone Hcl 1 Mg/Ml Syringe) 1 mg IVPUSH Q4H PRN; Protocol PRN Reason: Pain, Severe (Pain Scale 7-10) Last Admin: 11/11/25 07:47 Dose: 1 mg Hydromorphone HCl (Hydromorphone Hcl 1 Mg/Ml Syringe) 0.5 mg IVPUSH Q4H PRN; Protocol PRN Reason: Pain, Moderate(Pain Scale 4-6) Levetiracetam (Keppra) 500 mg in 100 mls @ 400 mls/hr IV Q12H [facility] Magnesium Hydroxide (Milk Of Magnesia 30 Ml Oral.Susp) 30 ml PO DAILY PRN PRN Reason: Constipation Melatonin (Melatonin 3 Mg Tablet) 6 mg PO BEDTIME PRN PRN Reason: Insomnia Ondansetron HCl (Ondansetron Hcl 4 Mg/2 Ml Vial) 4 mg IVPUSH Q8H PRN PRN Reason: Nausea and Vomiting Polyethylene Glycol (Polyethylene Glycol 3350 17 Gm Powd.Pack) 17 gm PO DAILY PRN PRN Reason: Constipation Senna (Sennosides 8.6 Mg Tablet) 17.2 mg PO BEDTIME [facility] Last Admin: 11/10/25 21:10 Dose: Not Given Sodium Chloride (0.9 % Sodium Chloride Flush 3 Ml Syringe) 3 ml IVFLUSH QSHIFT CYNTHIA Last Admin: 11/11/25 07:55 Dose: Not Given Allergies Allergies Allergy/AdvReac Type Severity Reaction Status Date / Time morphine (MORPHINE) Allergy Intermediate HIVES Verified 11/10/25 10:56 Penicillins (PENICILLINS) Allergy Intermediate HIVES Verified 11/10/25 10:56 Sulfa (Sulfonamide Allergy Intermediate HIVES Verified 11/10/25 10:56 Antibiotics) (SULFA(SULFONAMIDE ANTIBIOTICS)) Assessment & Plan Assessment & Plan (1) Opioid use disorder: Status: Acute Code(s): F11.90 - Opioid use, unspecified, uncomplicated Assessment and Plan: * patient appears to be experiencing opiate withdrawal sx--declines any intervention including methadone or buprenorphine * declining to engage any further with t/w, requesting to go home * please reconsult should patient change her mind * take home narcan at discharge Total time managing care of this patient today _20___ minutes. PMFSH Past Medical History Medical History (Updated 11/11/25 @ 11:04 by Alok Cooper MD) Polysubstance abuse Social History Social History Household Members: Family Housing: House Do you presently have visiting nurse or other home services: No Patient Tobacco Use Status: Current everyday Tobacco user Tobacco use type: Cigarette Cigarettes Per Day: 3 e-Cigarette/Vaping Use: Never Used
[2025-11-11] MEDS: levETIRAcetam in NaCl (iso-os) 500 MG/100 ML PIGGYBACK 400 MG IV (11:04)
--- NOTE | 2025-11-11 12:03 | MHC.CM.PN ---
Pt. left AMA
--- NOTE | 2025-11-11 14:22 | P.DS_ITS ---
DS: Providers Provider Date of admission: 11/10/25 19:54 Date of discharge: 11/11/25 Primary care physician: None Physician Consults: 11/10/25 19:55 Consult to Neurology Routine Consulting Provider: [facility] Reason for consultation: breakthrough seizure Has provider been notified: No 11/10/25 20:38 Addiction Medicine Provider Routine Consulting Provider: Addiction [facility]ing Reason for consultation: Polysubstance abuse, seizure related to withdrawal Has provider been notified: No DS: Diagnosis Discharge Diagnosis (1) Seizure disorder: Status: Acute (2) Chronic pain syndrome: Status: Acute (3) Opioid use disorder: Status: Acute DS: Summary Hospital Course Hospital Course: 45 year old woman with polysubstance use disorder and poorly controlled hypertension, admitted for breakthrough generalized seizure likely secondary to acute substance withdrawal, complicated by post-ictal agitation and tongue laceration; extensive neuroimaging negative, treated with levetiracetam and benzodiazepines for withdrawal management, who elected to leave the hospital against medical advice prior to completion of neurologic monitoring and withdrawal treatment. Breakthrough Seizure ? suspected substance withdrawal?related Presented with witnessed generalized seizure associated with post-ictal confusion, urinary incontinence, and tongue laceration. Head CT and full spine MRI negative for acute intracranial pathology or epidural abscess. Toxicology positive for fentanyl, cocaine, and THC. Loaded with levetiracetam and placed on seizure precautions. Neurology consultation was pending at time of departure.? Plan at Discharge (AMA): * Patient counseled extensively on risks of recurrent seizure, aspiration, injury, and . * Strongly advised to continue antiepileptic therapy as prescribed. * Advised to avoid driving, operating machinery, swimming, or high-risk activities. * Recommended urgent outpatient neurology follow-up. * Instructed to return immediately for recurrent seizure, confusion, headache, fever, or focal neurologic deficits. Polysubstance Use Disorder with Acute Withdrawal Hospital course notable for agitation, autonomic instability, hypertension, and seizure consistent with acute withdrawal. CIWA/COWS monitoring initiated; benzodiazepines administered PRN. Addiction Medicine consultation was offered but not completed prior to AMA departure.? Plan at Discharge (AMA): * Patient counseled on high risk of worsening withdrawal, recurrent seizures, overdose, and . * Encouraged to seek immediate addiction treatment and detox services. * Advised to present to ED for worsening withdrawal symptoms. * Harm?reduction counseling provided prior to departure as tolerated. Hypertensive Urgency Severe hypertension noted throughout admission (SBP >200 mmHg at times), likely exacerbated by withdrawal and medication nonadherence. No evidence of acute end?organ damage identified.? Plan at Discharge (AMA): * Patient counseled on risks of stroke, myocardial infarction, and renal injury. * Advised to resume antihypertensive therapy as prescribed. * Recommended close outpatient blood pressure follow?up. * Return precautions reviewed for chest pain, neurologic symptoms, or severe headache. Tongue Laceration (s/p repair) Sustained during seizure and repaired in the ED without complication.? Plan at Discharge (AMA): * Monitor for bleeding, swelling, infection. * Soft diet as tolerated. * Maintain oral hygiene. Back Pain Evaluated for possible spinal infection given IV drug use history. MRI cervical, thoracic, and lumbar spine negative for epidural abscess or high-grade stenosis.? Plan at Discharge (AMA): * No further inpatient workup indicated. * Outpatient follow-up as needed. * Avoid opioid use given substance use disorder. Incidental Aortocaval Lymph Node (13 mm) Nonspecific enlarged aortocaval lymph node identified on CT abdomen/pelvis; possibly reactive versus neoplastic. No acute intervention pursued.? Plan at Discharge (AMA): * Advised outpatient follow-up imaging and primary care evaluation. * Counseled on importance of follow-up given incomplete inpatient evaluation. AMA DISCUSSION: The patient demonstrated decision-making capacity and was counseled in detail regarding the risks of leaving the hospital against medical advice, including recurrent seizures, severe withdrawal, hypertensive complications, permanent disability, and . The patient verbalized understanding of these risks and elected to leave despite medical recommendations to remain hospitalized. Return precautions were provided. Status at Discharge Cognitive/behavioral status at discharge: Alert and oriented to person place time and situation Functional status at discharge: independent ambulation Overall status at discharge: patient is not back to baseline Time Attestation Total time managing care of this patient today: 45 mintues. Discharge Coordination Time (in mins): 45 Quality: Safe Use of Opioids Does Pt have an Active Cancer Diagnosis on the Problem List?: No Quality: Stroke Does the patient have a stroke diagnosis?: No Physical Exam Exam: Exam: General:?Awake, intermittently drowsy but arousable; appears stated age; no acute distress. Vital Signs:?Reviewed. HEENT:?Normocephalic, atraumatic. Pupils equal, round, and reactive to light. Extraocular movements intact. Tongue with repaired laceration, no active bleeding. Oral mucosa moist. Neck:?Supple, no meningismus. No JVD. Cardiovascular:?Regular rate and rhythm. No murmurs, rubs, or gallops. Peripheral pulses intact. Pulmonary:?Clear to auscultation bilaterally. No wheezes, rales, or rhonchi. Normal respiratory effort. Abdomen:?Soft, non?distended, non?tender. Bowel sounds present. Musculoskeletal:?Moves all extremities spontaneously. No focal joint swelling or deformity. No midline spinal tenderness appreciated. Extremities:?No lower extremity edema. No calf tenderness. Skin:?Warm and dry. Multiple healed or healing lesions on extremities without signs of acute infection. Neurologic:?Alert to person and place, intermittently confused. Cranial nerves II?XII grossly intact. No focal motor or sensory deficits appreciated. Psychiatric:?Anxious and intermittently agitated; judgment limited in setting of acute withdrawal but able to articulate decision to leave AMA. Vital Signs: Vital Signs: Last Vital Signs Temp 97.5 F 11/11/25 08:00 Pulse 94 11/11/25 08:00 Resp 16 11/11/25 08:00 BP 116/90 H 11/11/25 08:00 Pulse Ox 98 11/11/25 08:00 O2 Del Method Room Air 11/11/25 08:00 BMI result Body Mass Index 17.2 DS: Data Data Completed and Pending Labs on day of discharge: Laboratory Results - last 24 hr 11/11/25 06:17 WBC 16.5 H RBC 5.03 Hgb 13.2 Hct 40.6 MCV 80.7 MCH 26.2 L MCHC 32.5 RDW 14.3 Plt Count 322 D MPV 9.8 Immature Gran % (Auto) 0.5 H Neut % (Auto) 77.2 H Lymph % (Auto) 15.4 L [place] % (Auto) 6.2 Eos % (Auto) 0.5 Baso % (Auto) 0.2 Lymph # (Auto) 2.6 [place] # (Auto) 1.0 Eos # (Auto) 0.1 Baso # (Auto) 0.0 Abs Immat Gran (auto) 0.08 H Absolute Neuts (auto) 12.8 H Absolute Nucleated RBC 0.000 Nucleated RBC % (auto) 0.0 Sodium 133 L Potassium 3.5 Chloride 101 Carbon Dioxide 22 Anion Gap 14 BUN 13 Creatinine 0.61 Estim Creat Clear Calc 95.3 Estimated GFR > 60 Random Glucose 152 H Calcium 9.2 Total Bilirubin 0.6 AST 35 H ALT 23 Alkaline Phosphatase 110 Total Protein 8.6 H Albumin 3.7 Lipase 38 Hepatitis A IgM Ab Nonreactive Hep Bs Antigen Not Reportable Hep Bs Antibody NONREACTIVE Hep B Core Total Ab Reactive Hepatitis C Ab (EIA) Reactive H HIV 1&2 Ab/P24 Ag 4thGn Nonreactive Discharge Plan Discharge Anticipated Discharge Date/Time: 11/11/25 14:27 Patient Disposition: Left Against Medical Advice Discharge Diagnosis: Breakthrough seizure, polysubstance abuse Referrals: Physician,None [Primary Care Provider, Medical] - 1 Week Discharge Medications: No Action No Known Home Meds Discharge Orders: Discharge Order (Routine); Ordered 11/11/25 Ordered By: Tristan Venegas Diet: Advance to usual diet Activity on Discharge: As tolerated Print Language: Citizen Of [place] Care Plan Goals: Left against medical advice Health Concerns: Left hospital against medical advice Plan of Treatment: Follow up with PCP within 1 week of discharge Assessment: Left against medical advice Discharge Date/Time: 11/11/25 12:03
[2025-11-12 09:53] LABS: Hepatitis B Core Antibody IgM NON-REACTIVE (NON-REACTIVE)
== END 2025-11-11 12:03 | disposition left against medical advice (07) | DRG 894 ==
LOC: HO.ED 11:14 → HO.EDOVER 19:59 → HO.IMC 23:36
PROVIDERS: Admitting Provider Nurse Practitioner Family; Emergency Provider Emergency Medicine; Visit Provider Hospitalist
DX: F19.132 Other psychoactive substance abuse with withdrawal with perceptual disturbance (principal); R56.9 Unspecified convulsions; S01.512A Laceration without foreign body of oral cavity, initial encounter; W19.XXXA Unspecified fall, initial encounter; I10 Essential (primary) hypertension; G40.909 Epilepsy, unspecified, not intractable, without status epilepticus; G89.4 Chronic pain syndrome; F17.210 Nicotine dependence, cigarettes, uncomplicated; Z71.6 Tobacco abuse counseling; Z79.899 Other long term (current) drug therapy
CPT/HCPCS: 36415; 70450; 72141; 72146; 72148; 80048; 80053; 83690; 84484; 85025; 86301; 86704; 86705; 86706; 86709; 86803; 87340; 87389; 93005; 99285; J0131; J0360; J1171; J1630; J1650; J1885; J1953; J2250; J3360; J7120

== ENCOUNTER 2025-11-10 19:54 | Outpatient (BNV) | payer MEDICAID, SELFPAY | END 2025-11-10 21:58 | PROVIDERS: Admitting Provider Nurse Practitioner Family; Emergency Provider Emergency Medicine; Visit Provider Internal Medicine Cardiovascular Disease | DX: I10 Essential (primary) hypertension (principal) | CPT/HCPCS: 93010 ==

== ENCOUNTER → 2025-11-10 19:54 | Outpatient (BNV) | payer MEDICAID, SELFPAY | PROVIDERS: Admitting Provider Nurse Practitioner Family; Emergency Provider Emergency Medicine; Visit Provider Hospitalist | DX: F19.931 Other psychoactive substance use, unspecified with withdrawal delirium (principal); R56.9 Unspecified convulsions; I10 Essential (primary) hypertension; F11.90 Opioid use, unspecified, uncomplicated; Z53.29 Procedure and treatment not carried out because of patient's decision for other reasons | CPT/HCPCS: 99222; 99239 ==

== ENCOUNTER → 2025-11-10 19:54 | Outpatient (BNV) | payer MEDICAID, SELFPAY | PROVIDERS: Admitting Provider Nurse Practitioner Family; Emergency Provider Emergency Medicine; Visit Provider Psychiatry & Neurology Neurology | DX: G40.909 Epilepsy, unspecified, not intractable, without status epilepticus (principal); G89.4 Chronic pain syndrome | CPT/HCPCS: 99223 ==

== ENCOUNTER → 2025-11-10 19:54 | Outpatient (BNV) | payer MEDICAID, SELFPAY | PROVIDERS: Admitting Provider Nurse Practitioner Family; Emergency Provider Emergency Medicine; Visit Provider Nurse Practitioner Psychiatric/Mental Health | DX: F11.90 Opioid use, unspecified, uncomplicated (principal) | CPT/HCPCS: 99221 ==

== ENCOUNTER 2025-11-11 18:57 | Emergency (ER) | payer SELFPAY ==
--- NOTE | ~2025-11-11 | XR_ITS ---
CLINICAL HISTORY: trauma 1 view chest x-ray Comparison: None provided Findings: The lungs are clear. Normal size heart. No acute fracture. IMPRESSION: 1. No acute findings. This document has been electronically signed by: Giselle Rogel MD on 11/11/2025 22:36:27
--- NOTE | ~2025-11-11 | CT_ITS ---
CLINICAL HISTORY: head trauma CT cervical spine without contrast Comparison: MR - MR CERVICAL SPINE WO CON - 11/10/25 12:27 EST Findings: Straightening of the cervical spine is likely positional. Degenerative disc disease at C5-C6. No acute fractures or dislocations. Visualized intracranial contents are unremarkable. No cervical fluid collections or masses. No consolidation or effusion at the lung apices. IMPRESSION: No acute findings. This document has been electronically signed by: Giselle Rogel MD on 11/12/2025 00:08:22
--- NOTE | ~2025-11-11 | CT_ITS ---
CLINICAL HISTORY: head trauma CT head without contrast Comparison: CT/SR - CT HEAD/BRAIN WO IV CON - 11/10/25 16:40 EST Findings: No intra-axial mass, midline shift, hydrocephalus, or acute hemorrhage. No significant atrophy-like change or white matter disease. The visualized paranasal sinuses and mastoid air cells are normal. The orbits are within normal limits. No skull fracture. IMPRESSION: 1. No acute intracranial findings. This document has been electronically signed by: Giselle Rogel MD on 11/12/2025 00:10:39
[2025-11-11 19:10] VITALS: BP 177/112; PULSE 105; RESP 18; TEMP 36.6; O2SAT 97; BMI 18.8
--- NOTE | 2025-11-11 19:32 | ED_ITS ---
HPI - General Adult General Chief complaint: Back Pain/Injury Stated complaint: sect 35, back/neck pain, ?heroin use per family Time Seen by Provider: 11/11/25 19:26 Source: patient Mode of arrival: ambulatory Limitations: no limitations History of Present Illness ED Provider: Dr. Ponce HPI narrative: 45-year-old female history of IV drug use and opioid use disorder presented hospital today for evaluation of altered mentation. Patient stated that she had a seizure episode at home. She left AMA here recently this morning for seizure. The patient's family was concerned about her altered mentation and suspect that she may have use substances patient was not forthcoming with substance use at this time. Denies any alcohol usage. EMS brought patient to the hospital as she appears to be confused and under the influence. Currently on section. Related Data Previous Rx's ?Medication ?Instructions ?Recorded clonidine HCl 0.1 mg tablet 0.1 mg PO BID 30 days #60 tabs 11/12/25 lisinopril 40 mg tablet 40 mg PO DAILY 30 days #30 t abs 11/12/25 Allergies Allergy/AdvReac Type Severity Reaction Status Date / Time morphine (MORPHINE) Allergy Intermediate HIVES Verified 11/11/25 19:15 Penicillins (PENICILLINS) Allergy Intermediate HIVES Verified 11/11/25 19:15 Sulfa (Sulfonamide Allergy Intermediate HIVES Verified 11/11/25 19:15 Antibiotics) (SULFA(SULFONAMIDE ANTIBIOTICS)) Review of Systems 2 Review of Systems: Pertinent review of systems as mentioned in HPI. All other system otherwise negative. [facility] Past Medical History [facility] Narrative: Medical history as mentioned in [facility] Medical History (Updated 11/12/25 @ 02:13 by Danielle Ponce DO) Polysubstance abuse Social History Social History Household Members: Family Housing: House Do you presently have visiting nurse or other home services: No Patient Tobacco Use Status: Current everyday Tobacco user Tobacco use type: Cigarette Cigarettes Per Day: 3 e-Cigarette/Vaping Use: Never Used Advance Directives: No Advance Directives Information Provided: No Do you have a plan to hurt others: No Plan Physical Exam ED Exam Exam: General: Pleasant, no distress, interacting appropriately Head: Normacephalic, atraumatic ENT: oral mucosa moist, neck supple, no tracheal deviation Cardiovascular: regular rate, regular rhythm, no murmurs, rubbing, gallops Respiratory: CTAB, no wheeze, rales, rhonchi Gastrointestinal: Soft, non distended, non tender, non guarding Extremities: Some track bryan from IV drug use we identified on exam Neurological: Awake and alert, no facial droop noted Skin: Warm and dry Psychiatric: Appropriate mood and thoughts Vital Signs: Vital Signs - 24 hr 11/11/25 19:10 11/11/25 23:31 11/11/25 23:34 Temperature 97.8 F 98.0 F Pulse Rate 105 H 89 89 Respiratory Rate 18 17 Blood Pressure 177/112 H 214/121 H 214/121 H Pulse Oximetry 97 100 Oxygen Delivery Method Room Air Room Air 11/11/25 23:50 11/11/25 23:51 11/12/25 00:00 Temperature Pulse Rate 74 Respiratory Rate 17 Blood Pressure 214/121 H 214/121 H 215/123 H Pulse Oximetry 99 Oxygen Delivery Method Room Air 11/12/25 00:58 Temperature Pulse Rate 74 Respiratory Rate 16 Blood Pressure 154/107 H Pulse Oximetry 96 Oxygen Delivery Method Room Air BMI result Body Mass Index 18.8 Medications Administered Discontinued Medications Generic Name Dose Route Start Last Admin Trade Name Freq PRN Reason Stop Dose Admin Acetaminophen 975 mg 11/11/25 23:35 11/11/25 23:50 Acetaminophen 325 Mg Tablet PO 11/11/25 23:36 975 mg ONCE ONE Administration Clonidine HCl 0.2 mg 11/11/25 23:35 11/11/25 23:51 Clonidine Hcl 0.2 Mg Tablet PO 11/11/25 23:36 0.2 mg ONCE ONE Administration Protocol Sodium Chloride 1,000 mls @ 999 mls/hr 11/11/25 19:45 11/11/25 23:55 Ns IV 11/11/25 20:45 Infused .Q1H1M CYNTHIA Infusion Ketorolac Tromethamine 15 mg 11/11/25 23:35 11/11/25 23:49 Ketorolac Tromethamine 15 Mg/Ml Vial IVPUSH 11/11/25 23:36 15 mg ONCE ONE Administration Lidocaine 1 patch 11/11/25 23:35 11/11/25 23:51 Lidocaine 4 % Patch Adh..Patch TRANSDERMA 11/11/25 23:36 1 patch ONCE ONE Administration Protocol Lisinopril 40 mg 11/11/25 23:35 11/11/25 23:50 Lisinopril 40 Mg Tablet PO 11/11/25 23:36 40 mg ONCE ONE Administration Protocol Metoprolol Tartrate 25 mg 11/11/25 23:10 11/11/25 23:31 Metoprolol Tartrate 25 Mg Tablet PO 11/11/25 23:11 25 mg ONCE ONE Administration Protocol Medical Decision Making Medical Decision Making [facility] Narrative: 45-year-old female history of IV drug use over use disorder and seizure disorder presented hospital today for evaluation of possibly being under the influence. Patient stated that she had another seizure at home. She is not currently on any medication for seizures. Recently left AMA for her seizure. We will plan to get basic lab on patient. CT head CT C-spine will be obtained IV fluid be given to the patient as well. We will screen for any other metabolic causes for her seizure. Apparently on discharge summary previous admission appears that it is suspected that she may have withdrawal seizures. No sign of active tremors on exam. She does have elevated lactic acid and CK level. Likely indicative of a seizure. She has no history of seizure in the past. CT head was performed and CT C-spine was performed. No signs of intracranial abnormality or fracture. Patient's lactic acid has improved. I discussed the patient about admission to the hospital I do recommend admission to the hospital. The patient is refusing admission at this time. She stated she would like to go home. Through shared decision-making we will plan to discharge patient with a detox resources. We will also give referral to Neurology for the patient. Patient has had left AMA earlier today for her seizure-like activity. She did not want to be admitted to the hospital. Take home Narcan kit will be provided the patient. We will plan to represcribed her hypertension medicine. We will add clonidine on. Patient stated that she normally takes 40 mg of lisinopril for her hypertension. Blood pressure improved after p.o. antihypertensive here. Patient will be discharged home. Differential Diagnosis Differential Diagnoses: The differential diagnosis associated with the presentation includes Seizure, seizure-like activity, opioid use disorder, alcohol seizure Lab Data [facility] Lab Attestation statement: I reviewed the patient's lab results. 11/11/25 22:39 11/11/25 22:39 Labs: Lab Results 11/11/25 11/12/25 Range/Units 22:39 00:56 WBC 9.1 (4.8-10.8) X10*3/uL RBC 5.72 H (4.20-5.50) X10*6/uL Hgb 15.0 (12.0-16.0) g/dl Hct 46.2 (37.0-47.0) % MCV 80.8 (80.0-98.0) fL MCH 26.2 L (27.0-33.0) pg MCHC 32.5 (31.0-35.0) g/dl RDW 14.4 (11.0-16.0) % Plt Count 259 (160-400) X10*3/uL MPV 9.4 (9.4-12.3) fL Immature Gran % (Auto) 0.3 (0.0-0.4) % Neut % (Auto) 66.3 (45-73) % Lymph % (Auto) 25.9 (20-40) % [place] % (Auto) 6.1 (2-11) % Eos % (Auto) 1.1 (0-4) % Baso % (Auto) 0.3 (0-2) % Lymph # (Auto) 2.4 (1.2-4.9) X10*3/uL [place] # (Auto) 0.6 (0.1-1.2) X10*3/uL Eos # (Auto) 0.1 (0.0-0.4) X10*3/uL Baso # (Auto) 0.0 (0.0-0.2) X10*3/uL Abs Immat Gran (auto) 0.03 (0.00-0.03) X10*3/uL Absolute Neuts (auto) 6.0 (2.0-8.3) x10*3/uL Absolute Nucleated RBC 0.000 (0.0-0.012) X10*3/uL Nucleated RBC % (auto) 0.0 (0.0-0.2) /100WBC Sodium 136 (135-145) mmol/L Potassium 3.5 (3.3-5.1) mmol/L Chloride 101 (96-108) mmol/L Carbon Dioxide 25 (22-29) mmol/L Anion Gap 14 (12-20) BUN 14 (9-16) mg/dL Creatinine 0.65 (0.5-1.4) mg/dL Estim Creat Clear Calc 94.9 Estimated GFR > 60 Random Glucose 229 H (60-115) mg/dL Lactic Acid 2.6 H* (0.5-2.0) mmol/L Lactic Acid F/U @ 2Hr 0.9 (0.5-2.0) mmol/L Calcium 9.7 (8.4-10.2) mg/dL Magnesium 2.1 (1.6-2.6) mg/dL Total Bilirubin 0.3 (0.0-1.0) mg/dL AST 29 (5-31) U/L ALT 26 (0-31) U/L Alkaline Phosphatase 109 (39-117) U/L Total Creatine Kinase 147 H (26-140) U/L Total Protein 9.3 H (6.5-8.0) g/dL Albumin 4.0 (3.5-5.0) g/dL Beta HCG, Quant < 2 mIU/mL Independent Interpretation I performed an independent interpretation of an: CT Scan Radiology Impression Discussion of test interpretation with radiology: I have reviewed the radiologist's reading. Discharge Plan Discharge Clinical Impression: Seizure-like activity Patient Disposition: Home, Self-Care Additional Instructions: Please follow up with the neurology team. If you need further detox resource you may return for evaluation. You were seen in our Emergency Department today for treatment of opiate use disorder. You may have been dosed with medication for opiate use disorder (MOUD) in the form of suboxone or methadone. You may experience feeling some withdrawal symptoms and this is normal. The? dose in the Emergency Department is a starting dose and meant to be titrated up once you follow up with a clinic. Please do not feel discouraged, it is a process. The nurse has reviewed with you where to follow up and what information to bring with you, to continue treatment. You also may have been given naloxone (narcan) to take home with you. This medication is used to potentially treat opiate overdose. If you decide you want to stop or cut down on how much you?re using, you can call or walk into our outpatient Addiction Treatment office: [facility] (M-F 9am-5p) [address] [place] [address], [address] [phone] You may have been provided with safer injection?items, please take time to take care of YOU and your health. Use new supplies whenever possible to lessen the chances of infections and other illnesses.? ?If you need more supplies, please go [facility],? [address], [place] you can call or text to coordinate delivery of safer supplies. You were also provided a list of several treatment providers in the area.? If you experience any worsening symptoms you cannot control please return to the ED or call 911. Please follow up at your next appointment. Things to look out for are fevers, chest pain, shortness of breath, severe pain, dizziness, fainting or any other concerns. Prescriptions: New lisinopril 40 mg tablet 40 mg PO DAILY 30 Days Qty: 30 0RF clonidine HCl 0.1 mg tablet 0.1 mg PO BID 30 Days Qty: 60 0RF Referrals: [facility], [place] [Provider Group, Internal Medicine] [facility] Neurology & Sleep-[facility] [Provider Group] [facility] Neurology [Outside] Print Language: Cuban
--- NOTE | 2025-11-11 20:41 | PC.NURSE ---
pt difficult stick, pending ultra sound guided line.
[2025-11-11 22:43] LABS: MANUAL DIFF FLAG NO
[2025-11-11 22:50] LABS: Hematocrit 46.2 % (37.0-47.0); Hemoglobin 15.0 g/dl (12.0-16.0); Imm Gran Abs Auto 0.03 X10*3/uL (0.00-0.03); Imm Gran Pct Auto 0.3 % (0.0-0.4); Lymphocytes Absolute Auto 2.4 X10*3/uL (1.2-4.9); Mean Corpuscular HGB Conc 32.5 g/dl (31.0-35.0); Mean Corpuscular Hemoglobin 26.2 pg (27.0-33.0); Mean Corpuscular Volume 80.8 fL (80.0-98.0); NRBC Abs Auto 0.000 X10*3/uL (0.0-0.012); NRBC Pct Auto 0.0 /100WBC (0.0-0.2); Platelet Count 259 X10*3/uL (160-400); Red Blood Count 5.72 X10*6/uL (4.20-5.50); White Blood Count 9.1 X10*3/uL (4.8-10.8)
[2025-11-11 23:09] LABS: Alanine Aminotransferase 26 U/L (0-31); Albumin Level 4.0 g/dL (3.5-5.0); Alkaline Phosphatase 109 U/L (39-117); Anion Gap 14 (12-20); Aspartate Amino Transferase 29 U/L (5-31); Blood Urea Nitrogen 14 mg/dL (9-16); Calcium 9.7 mg/dL (8.4-10.2); Carbon Dioxide 25 mmol/L (22-29); Chloride 101 mmol/L (96-108); Creatinine Clr Calc Pharmacy 94.9; Estimated Glomerular Filt Rate > 60; Magnesium 2.1 mg/dL (1.6-2.6); Potassium 3.5 mmol/L (3.3-5.1); Sodium 136 mmol/L (135-145); Total Protein 9.3 g/dL (6.5-8.0)
[2025-11-11 23:31] VITALS: BP 214/121; PULSE 89
[2025-11-11 23:34] VITALS: BP 214/121; PULSE 89; RESP 17; TEMP 36.7; O2SAT 100
[2025-11-11 23:50] VITALS: BP 214/121
[2025-11-11 23:51] VITALS: BP 214/121
[2025-11-11] MEDS: Lidocaine 4 % Patch ADH..PATCH 1 PATCH TRANSDERMA (23:51)
[2025-11-12] VITALS: BP 215/123; PULSE 74; RESP 17; O2SAT 99
[2025-11-12 00:44] LABS: Reflex Lactate? Lactic Acid Added
[2025-11-12 00:58] VITALS: BP 154/107; PULSE 74; RESP 16; O2SAT 96
[2025-11-12 01:14] LABS: ~Lactic Acid-LAB USE ONLY 0.9 mmol/L (0.5-2.0)
[2025-11-12] MEDS: Naloxone HCl Nasal TAKE HOME 4 MG SPRAY 8 MG NOSTRILALT (02:28)
[2025-11-12 02:30] VITALS: BP 157/98; PULSE 65; RESP 16; TEMP 36.7; O2SAT 96
== END 2025-11-12 02:35 | disposition home or self-care (01) ==
PROVIDERS: Emergency Provider Student in an Organized Health Care Education/Training Program
DX: R56.9 Unspecified convulsions (principal); F19.90 Other psychoactive substance use, unspecified, uncomplicated; R41.82 Altered mental status, unspecified; S09.90XA Unspecified injury of head, initial encounter; S09.93XA Unspecified injury of face, initial encounter; X58.XXXA Exposure to other specified factors, initial encounter; Y93.9 Activity, unspecified; Y92.9 Unspecified place or not applicable; I10 Essential (primary) hypertension; Z71.6 Tobacco abuse counseling; F17.200 Nicotine dependence, unspecified, uncomplicated; Z79.899 Other long term (current) drug therapy
CPT/HCPCS: 36415; 70450; 71045; 72125; 80053; 82550; 83605; 83735; 84702; 85025; 96361; 96374; 99284; 99285; J1885

== ENCOUNTER → 2025-11-11 21:52 | Outpatient (BNV) | payer MEDICAID, SELFPAY | PROVIDERS: Emergency Provider Student in an Organized Health Care Education/Training Program; Visit Provider Radiology Diagnostic Radiology | DX: Z04.3 Encounter for examination and observation following other accident (principal) | CPT/HCPCS: 70450; 71045; 72125 ==